=== PATIENT | female | born 1970 | race Caucasian/White ===

== ENCOUNTER → 2018-01-28 07:06 | Outpatient (CLI) | payer OTHER, SELFPAY ==
[2018-01-28 08:12] LABS: Add Manual Diff / Slide Review NO; Basophils Percent Auto 0.5 % (0-2); Eosinophils Percent Auto 1.6 % (2-4); Hematocrit 40.8 % (36-46); Hemoglobin 13.7 g/dL (12.0-16.0); Lymphocytes Percent Auto 35.1 % (25-40); Mean Corpuscular HGB Conc 33.5 % (30-36); Mean Corpuscular Hemoglobin 30.9 PG (26-34); Mean Corpuscular Volume 92.4 fL (80-100); Monocytes Percent Auto 8.7 % (3-14); Neutrophils Absolute Auto 3200 /uL (3000-5900); Neutrophils Percent Auto 54.1 % (50-75); Platelet Count 194 X10^3/uL (150-400); Red Blood Cell Count 4.41 X10^6/uL (4.0-5.2); Red Cell Distribution Width 13.4 % (11.6-14.8); White Blood Cell Count 5.8 X10^3/uL (4.5-11.0)
[2018-01-28 08:21] LABS: Alanine Aminotransferase 28 IU/L (9-52); Albumin Globulin Ratio 1.3 (1.0-2.8); Alkaline Phosphatase 61 U/L (38-126); Aspartate Aminotransferase 20 IU/L (14-36); Bilirubin Total 0.5 mg/dL (0.2-1.3); Calcium 8.9 mg/dL (8.4-10.2); Estimated Glomerular Filt Rate > 60.0 mL/min (>60); Globulin 3.1 g/dL (1.7-4.1); Glucose 83 mg/dL (70-100); HEMOLYSIS < 15 (0-50); Potassium 4.2 mmol/L (3.4-5.1); Sodium 142 mmol/L (137-145); Total Protein 7.1 g/dL (6.3-8.2)
[2018-01-28 08:44] LABS: Appearance Urine UA CLEAR; Bilirubin Urine UA NEGATIVE (NEGATIVE); Color Urine UA YELLOW; Glucose Urine UA NEGATIVE (Normal); Ketones Urine UA NEGATIVE (NEGATIVE); Leukocyte Esterase Urine UA NEGATIVE (NEGATIVE); Nitrite Urine UA NEGATIVE (NEGATIVE); Occult Blood Urine UA TRACE-LYSED (Negative); Protein Urine UA NEGATIVE (Negative); Specific Gravity Urine UA 1.025 (1.000-1.035); Urobilinogen Urine UA 0.2 E.U./dL (0.2)
[2018-01-28 08:51] LABS: Culture Indicated Urine Cult Not Indicated; RBC Urine 1-5/HPF (0-5/HPF)
[2018-01-28 08:53] LABS: Squamous Epithelial Cell Urine 5-10 /HPF
== END ==
PROVIDERS: Family Provider Nurse Practitioner; PCP Nurse Practitioner; Visit Provider Nurse Practitioner Family
DX: Z00.00 Encounter for general adult medical examination without abnormal findings (principal)
CPT/HCPCS: 36415; 80053; 81001; 85025

== ENCOUNTER → 2018-01-29 10:51 | Outpatient (CLI) | payer OTHER, SELFPAY ==
--- NOTE | 2018-01-29 | DI.MG.S_ITS ---
BILATERAL DIGITAL SCREENING MAMMOGRAM 3D/2D WITH CAD: 01/29/2018 CLINICAL: Routine screening. Family history of breast cancer. Comparison is made to exams dated: 01/13/2017 mammogram, 12/24/2015 mammogram, and 12/15/2014 mammogram - [facility]. The tissue of both breasts is heterogeneously dense. This may lower the sensitivity of mammography. Current study was also evaluated with a Computer Aided Detection (CAD) system. No significant masses, calcifications, or other findings are seen in either breast. There has been no significant interval change. IMPRESSION: NEGATIVE There is no mammographic evidence of malignancy. A 1 year screening mammogram is recommended. This exam was interpreted at Station ID: [id number]. NOTE: For mammograms, a report in lay terms will be sent to the patient. Approximately 15% of breast malignancies will not be visualized mammographically. In the management of a palpable breast mass, a negative mammogram must not discourage biopsy of a clinically suspicious lesion. Electronically Signed By: Nathan hawkins/shazia:02/03/2018 16:27:29 letter sent: Normal Exam ACR BI-RADS Category 1: Negative 3341F
== END ==
PROVIDERS: PCP Obstetrics & Gynecology; Visit Provider Obstetrics & Gynecology
DX: Z12.31 Encounter for screening mammogram for malignant neoplasm of breast (principal); Z80.3 Family history of malignant neoplasm of breast
CPT/HCPCS: 77063; 77067

== ENCOUNTER → 2019-06-09 14:33 | Outpatient (CLI) | payer OTHER, SELFPAY | PROVIDERS: PCP Obstetrics & Gynecology | DX: Z23 Encounter for immunization (principal) | CPT/HCPCS: 90471; 90686 ==

== ENCOUNTER → 2020-02-20 09:47 | Outpatient (CLI) | payer OTHER, SELFPAY ==
--- NOTE | 2020-02-20 09:49 | DI.MG.S_ITS ---
BILATERAL DIGITAL SCREENING MAMMOGRAM 3D/2D WITH CAD: 02/20/2020 CLINICAL: Routine screening. Family history of breast cancer. Comparison is made to exams dated: 01/13/2017 mammogram, 01/29/2018 mammogram, and 12/24/2015 mammogram - [facility]. The tissue of both breasts is heterogeneously dense. This may lower the sensitivity of mammography. Current study was also evaluated with a Computer Aided Detection (CAD) system. No significant masses, calcifications, or other findings are seen in either breast. There has been no significant interval change. IMPRESSION: NEGATIVE There is no mammographic evidence of malignancy. A 1 year screening mammogram is recommended. This exam was interpreted at Station ID: [id number]. NOTE: For mammograms, a report in lay terms will be sent to the patient. Approximately 15% of breast malignancies will not be visualized mammographically. In the management of a palpable breast mass, a negative mammogram must not discourage biopsy of a clinically suspicious lesion. Electronically Signed By: Gregory napoles/shazia:02/20/2020 10:13:31 letter sent: Normal Exam ACR BI-RADS Category 1: Negative 3341F
== END ==
PROVIDERS: PCP Obstetrics & Gynecology; Referring Provider Obstetrics & Gynecology; Visit Provider Obstetrics & Gynecology
DX: Z12.31 Encounter for screening mammogram for malignant neoplasm of breast (principal); Z80.3 Family history of malignant neoplasm of breast
CPT/HCPCS: 77063; 77067

== ENCOUNTER → 2020-02-29 07:41 | Outpatient (CLI) | payer OTHER, SELFPAY ==
[2020-02-29 08:19] LABS: Add Manual Diff / Slide Review NO; Basophils Absolute Auto 0 /uL (0-100); Basophils Percent Auto 0.5 % (0-2); Eosinophils Absolute Auto 0 /uL (0-450); Eosinophils Percent Auto 1.4 % (2-4); Hematocrit 40.8 % (36-46); Hemoglobin 13.8 g/dL (12.0-16.0); Lymphocytes Absolute Auto 1200 /uL (1100-4500); Lymphocytes Percent Auto 33.1 % (25-40); Mean Corpuscular HGB Conc 33.8 % (30-36); Mean Corpuscular Hemoglobin 31.6 PG (26-34); Mean Corpuscular Volume 93.6 fL (80-100); Monocytes Absolute Auto 300 /uL (0-900); Monocytes Percent Auto 9.5 % (3-14); Neutrophils Absolute Auto 1900 /uL (1500-7000); Neutrophils Percent Auto 55.5 % (50-75); Platelet Count 180 X10^3/uL (150-400); Red Blood Cell Count 4.36 X10^6/uL (4.0-5.2); Red Cell Distribution Width 13.9 % (11.6-14.8); White Blood Cell Count 3.5 X10^3/uL (4.5-11.0)
[2020-02-29 09:15] LABS: Alanine Aminotransferase 13 IU/L (<35); Albumin 4.4 g/dL (3.5-5.0); Albumin Globulin Ratio 1.5 (1.0-2.8); Alkaline Phosphatase 62 U/L (38-126); Aspartate Aminotransferase 18 IU/L (14-36); BUN Creatinine Ratio 23.7 (6-22); Bilirubin Total 0.8 mg/dL (0.2-1.3); Blood Urea Nitrogen 22 mg/dL (7-17); Calcium 9.8 mg/dL (8.4-10.2); Carbon Dioxide 23 mmol/L (22-32); Chloride 108 mmol/L (98-107); Cholesterol 148 mg/dL (140-199); Estimated Glomerular Filt Rate > 60.0 mL/min (>60); Globulin 2.9 g/dL (1.7-4.1); Glucose 82 mg/dL (70-100); HDL Cholesterol 62 mg/dL (40-60); HEMOLYSIS < 15 (0-50); LDL Cholesterol Calculated 74 mg/dL (<100); Potassium 4.5 mmol/L (3.4-5.1); Sodium 140 mmol/L (137-145); Total Protein 7.3 g/dL (6.3-8.2); Triglycerides 59 mg/dL (35-150)
[2020-02-29 09:45] LABS: Thyroid Stimulating Hormone 1.91 uIU/mL (0.47-4.68)
== END ==
PROVIDERS: PCP Obstetrics & Gynecology; Referring Provider Obstetrics & Gynecology; Visit Provider Obstetrics & Gynecology
DX: Z00.00 Encounter for general adult medical examination without abnormal findings (principal); Z13.228 Encounter for screening for other metabolic disorders; Z13.29 Encounter for screening for other suspected endocrine disorder; Z13.0 Encounter for screening for diseases of the blood and blood-forming organs and certain disorders involving the immune mechanism; Z13.220 Encounter for screening for lipoid disorders
CPT/HCPCS: 36415; 80053; 80061; 84443; 85025

== ENCOUNTER → 2020-03-09 12:18 | Outpatient (CLI) | payer OTHER, SELFPAY ==
--- NOTE | 2020-03-09 12:21 | DI.US.S_ITS ---
LIMITED ULTRASOUND OF LEFT BREAST: 03/09/2020 CLINICAL: Palpable left breast lump by physician. Comparison is made to exams dated: 02/20/2020 mammogram, 01/29/2018 mammogram, and 01/13/2017 mammogram - [facility]. Real-time ultrasound of the left breast retroareolar was performed. Velázquez scale images of the real-time examination were reviewed. No significant abnormalities were seen sonographically in the left breast at the indicated area of palpable abnormality. This area on mammogram demonstrates questionable asymmetry in retrospect. IMPRESSION: PROBABLY BENIGN A follow-up left mammogram and an ultrasound in 6 months is recommended to demonstrate stability. Future imaging is recommended as follows: 02/20/2021 screening mammogram. Findings and recommendations were conveyed to the patient at time of exam. This exam was interpreted at Station ID: [id number]. Electronically Signed By: Leyla cramer/:03/09/2020 13:35:16 letter sent: Followup Recommended Ultrasound BI-RADS: 3 Probably benign
== END ==
PROVIDERS: PCP Obstetrics & Gynecology; Referring Provider Obstetrics & Gynecology; Visit Provider Obstetrics & Gynecology
DX: R92.8 Other abnormal and inconclusive findings on diagnostic imaging of breast (principal); N63.25 Unspecified lump in the left breast, overlapping quadrants
CPT/HCPCS: 76642

== ENCOUNTER → 2020-06-19 19:36 | Outpatient (CLI) | payer OTHER, SELFPAY | PROVIDERS: PCP Obstetrics & Gynecology; Referring Provider Internal Medicine; Visit Provider Internal Medicine | DX: Z23 Encounter for immunization (principal) | CPT/HCPCS: 90471; 90686 ==

== ENCOUNTER → 2021-09-23 10:24 | Outpatient (CLI) | payer OTHER, SELFPAY ==
[2021-09-24 13:59] LABS: Fecal Immunochemical Test Positive (Negative)
== END ==
PROVIDERS: PCP Internal Medicine; Referring Provider Internal Medicine; Visit Provider Internal Medicine
DX: Z12.11 Encounter for screening for malignant neoplasm of colon (principal)
CPT/HCPCS: 82274

== ENCOUNTER → 2022-07-25 09:37 | Outpatient (CLI) | payer OTHER, SELFPAY ==
--- NOTE | 2022-07-25 09:40 | DI.MG.S_ITS ---
BILATERAL DIGITAL DIAGNOSTIC MAMMOGRAM 3D/2D: 07/25/2022 CLINICAL: Late Short term follow up of the left breast, due for bilateral imaging. Comparison is made to exams dated: 03/09/2020 ultrasound, 02/20/2020 mammogram, 01/29/2018 mammogram, and 01/13/2017 mammogram - [facility]. Both breasts are heterogeneously dense, which may obscure small masses (category c / 51-75% glandular tissue). The previously seen questionable asymmetry in the left breast retroareolar region is no longer visualized, presumably secondary to superimposed fibroglandular breast tissue on the prior exam. No significant masses, calcifications, or other findings are seen in either breast. IMPRESSION: NEGATIVE There is no mammographic evidence of malignancy. Return to annual mammogram screening schedule is recommended. Based on the Tyrer Cuzick model (a risk assessment model) the patient's lifetime risk is 12.8% and her 10 year risk is 3.2%. According to the ACR, ACS, and NCCN guidelines, an annual breast MRI exam along with mammogram is recommended if the patient's lifetime risk is 20% or greater. This exam was interpreted at Station ID: [id number]. NOTE: For mammograms, a report in lay terms will be sent to the patient. Approximately 15% of breast malignancies will not be visualized mammographically. In the management of a palpable breast mass, a negative mammogram must not discourage biopsy of a clinically suspicious lesion. Electronically Signed By: Leobardo bliss/shazia:07/25/2022 10:22:52 letter sent: Normal Exam ACR BI-RADS Category 1: Negative 3341F
== END ==
PROVIDERS: PCP Internal Medicine; Referring Provider Internal Medicine; Visit Provider Internal Medicine
DX: R92.1 Mammographic calcification found on diagnostic imaging of breast (principal)
CPT/HCPCS: 77066; G0279

== ENCOUNTER → 2023-07-16 | Outpatient (CLI) | payer OTHER, SELFPAY | PROVIDERS: Family Provider Internal Medicine; PCP Internal Medicine; Referring Provider Family Medicine; Visit Provider Family Medicine | DX: Z23 Encounter for immunization (principal) | CPT/HCPCS: 90471; 90686 ==

== ENCOUNTER 2023-09-03 15:15 | Outpatient (RCR) | payer OTHER, SELFPAY ==
--- NOTE | 2023-05-06 18:22 | PT.OIE ---
Current Diagnoses Pain in left shoulder (05/06/23) Past Medical History (Last Updated 11/14/21 @ 14:24 by Wilian Ford MD) Abnormal Pap smear of cervix (1996) Chronic back pain (2012) Eczema (1971) Hayfever (~1980) History of adenomatous polyp of colon Infection of skin due to methicillin resistant Staphylococcus aureus (MRSA) (2007) Leg length discrepancy Miscarriage (07/2005) Past Surgical History (Last Reviewed 01/08/21 @ 14:12 by Wilian Ford MD) Anesthesia History of varicose vein stripping (2006) Status post dilation and curettage (2004) Status post loop electrosurgical excision procedure (LEEP) of cervix (1996) Visit Care Team Role Provider Type Wilian Ford MD Attending Provider Physician Family Provider Primary Care Provider Referring Provider Specialty: Internal Medicine Address: [address] [place] [address], [address], [facility] Email: [email or web address] Physical Therapy Initial Evaluation PT-OP-A Visit Information Start: 04/29/23 14:56 Freq: Status: Active Protocol: Document 05/06/23 15:16 [facility] (Rec: 05/06/23 16:52 [facility] [id number]) Out-Patient Physical Therapy Visit Information Visit Information Visit Type Initial Evaluation Visit Start Time 16:06 Visit Stop Time 16:49 Total Visit Minutes 43 Visit Number 1 Number of CHAINSTITCH 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 Now she gets a spasm in armpit. She likes to sleep on stomach and her L lat arm and into lat forearm. She is trying to sit better at her desk. 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 She gets the pain when bending over. She hasn't swam. She did light weights . Pt was doing a challenge w/ squats, dips, push ups in November and December and is wondering if that was par to fit. Now she is in the gym and she is working out. She has a noticed she is weaker. She can't bench d/t the signficant weakness. pt lean back when sleeping d/t otherwise arm goes numb. Motrin didn't help. She took a 12 hour steriod from the [facility] which helepd only a little. She feels like L shoulder has some dec ROM. Gets some shooting pain in lat neck. when MT was working on R side of neck, felt it burning down the arm. Denies JETER. Pt does wear a helmet when flying that has about 5lbs to it. Pt has LBP issues but that hasn't been an issue recently. Pt report that gets worse when she gains weight. She has worked w/ a chiro 3x and it wasn't helping. This was in February when is was really bad. Massage has helped but not fully. Treatment Goals Patient/Caregiver Goals be able to carry backpack, not have pain during work, be able lift more evenly PT-OP-C Subjective Start: 04/29/23 14:56 Freq: Status: Active Protocol: Document 05/06/23 15:16 [facility] (Rec: 05/06/23 16:52 [facility] [id number]) OP-PT Pain Assessment Location L shoulder Pain Location Details med shoulder blade Frequency Constant Pain Duration can take a couple days Radiating Location up L neck Variations/Patterns burning/tingling down lat arm and into 2nd and 3rd digit( tips only) Pain Aggravating Factors Bending,Lifting Other Pain Aggravating Factors carrying backpack, Pain Alleviating Factors Massage PT-OP-F Manual Assessment Start: 04/29/23 14:56 Freq: Status: Active Protocol: Document 05/06/23 15:16 [facility] (Rec: 05/06/23 16:52 [facility] [id number]) Manual Assessments Joint Mobility Assessment Joint Mobility Assessment L 1st rib elevated PT-OP-J Posture/Palpation/Skin Start: 04/29/23 14:56 Freq: Status: Active Protocol: Document 05/06/23 15:16 [facility] (Rec: 05/06/23 16:52 [facility] [id number]) Posture Evaluation Akosua Postural Classification System Akosua Postural Classifications Posterior/Posterior Elbow Flexion Test 1 Comments Posture Comments ant tipped and abd L scap PT-OP-K Range of Motion Start: 04/29/23 14:56 Freq: Status: Active Protocol: Document 05/06/23 15:16 [facility] (Rec: 05/06/23 16:52 [facility] [id number]) Cervical Spine Range of Motion Cervical Spine Active Degrees Flexion 62 Extension 45 Rotation Left 58 Rotation Right 62 Lateral Flexion Left 34 Lateral Flexion Right 35 Comments ext & R SB inc pain; LUE WNL except 90/90 ER PT-OP-L Special Tests Start: 04/29/23 14:56 Freq: Status: Active Protocol: Document 05/06/23 15:16 [facility] (Rec: 05/06/23 16:52 [facility] [id number]) Special Tests Cervical Spine Special Tests Traction Test Results inc symptoms down UE Spurling's Test Test Results inc symptoms down UE Neural Special Tests- Upper Body Radial Nerve Tension Comments positive l Ulnar Nerve Tension Comments relief of symptoms Median Nerve Tension Comments positive L PT-OP-M Strength Start: 04/29/23 14:56 Freq: Status: Active Protocol: Document 05/06/23 15:16 [facility] (Rec: 05/06/23 16:52 [facility] [id number]) Shoulder Strength Shoulder Manual Muscle Testing Right Flexion 5 Normal Extension 5 Normal Abduction (C5) 5 Normal Internal Rotation 5 Normal Left Flexion 4 Good Extension 4 Good Abduction (C5) 4+ Good+ External Rotation 4- Good- Internal Rotation 5 Normal Elbow/Forearm Strength Elbow and Forearm Manual Muscle Testing Right Flexion (C6) 5 Normal Extension (C7) 5 Normal Left Flexion (C6) 5 Normal Extension (C7) 4 Good Wrist Strength Wrist Manual Muscle Testing Right Flexion (C7) 5 Normal Extension (C6) 5 Normal Left Flexion (C7) 4 Good Extension (C6) [address] Machine Operator/Pinch Strength Hand Dominance Hand Dominance Right Hand Strength Right Comments 67#, 74#, 68# Left Comments 65lb, 55lb, 45# PT-OP-Q Treatments Start: 04/29/23 14:56 Freq: Status: Active Protocol: Document 05/06/23 15:16 [facility] (Rec: 05/06/23 18:08 [facility] [id number]) Manual Therapy Treatment Joint Mobilizations thoracic Body Position Sitting Comments PA T1-3 w/3D localization FM seated transverse glide R T1-3 FM w/ cover position PT-OP-T Assessment and Plan Start: 04/29/23 14:56 Freq: Status: Active Protocol: Document 05/06/23 15:16 [facility] (Rec: 05/06/23 16:52 [facility] [id number]) Physical Therapy Assessment Rehab Potential Rehabilitation Potential Good Evaluation Complexity Number of Personal Factors/Comorbidities 3 or More Number of Body Systems Impaired 4 or More Clinical Presentation at Evaluation Evolving Impairments Impairments Activity Tolerance,Functional Activities,Functional Mobility ,Pain,Posture,ROM,Sensation, Soft Tissue Mobility,Strength Goals activities Short Term Goal (STG) Pt will be able to sleep comfortably w/o having to change position to dec symptoms into LUE. STG Duration 06/14/23 Agronomy Instructor Goal (LTG) Pt will be able to lift and swim w/o inc L shoulder pain. LTG Duration 07/15/23 strength Short Term Goal (STG) pt will be indep w/HEP STG Duration 06/14/23 Agronomy Instructor Goal (LTG) Pt will score 5/5 UE strength on L and at least 4/5 EFT to show improved stabiltiy in order pt to do all lifting tasks w/o inc pain. 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 LTG Duration 07/15/23 Assessment Summary Assessment Pt presents w/onset of L mid med scap pain taht started3 months ago and 1 month later progressing to UE tingling and burning in C6 distribution except for the thumb and numbness at tips of figers 2 and 3. 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 She is unable to carry a back pack at this time, which is a vital duty of her job and prohibits her from hiking w/a pack strapped appropriately to her. She has weakness of LUE along w/limited cervical and mild shoudler ROM limitation. she had positive radial and med n tension testing and does not have history of any trama to her neck/head. She has elevation of ribs on L along w /dec inhalation and exhalation on L. Pt also breathes more shallow w/mostly upper ribcage movement during breathing w/ dec diaphragmatic breathing, whcih could be contributing to this pain. Pt would benefit from skilled PT to improve ROM , LUE strength, dec symptoms and allow pt to resume all job duties and do all rec activities w/o inc pain. Physical Therapy Plan Frequency and Duration Frequency of Treatment 1x/Week Duration of treatment (weeks) 10 Plan of Care Start Date 05/06/23 Plan of Care End Date 07/15/23 Therapeutic Interventions Therapeutic Interventions Gait Training,Home Exercise Program,Joint Mobilizations, Manual Therapy,Neuromuscular Re-education,Orthotic/ Prosthetic Management,Patient/ Caregiver Education,Self-Care/ Home Management,Soft Tissue Mobilization,Taping, Therapeutic Activities, Therapeutic Exercises Modalities Cold Pack/Ice Massage,Electric Stimulation,Hot Packs, Infrared Therapy,Traction- Mechanical,Ultrasound Next Visit Focus/Plan Next Note Type Treatment Note Next Visit Plan manubrium, tspine mobs, ribs 1 -3 mobs, STM to pec, lat, UT, scalenes, L ribcage HEP: wall posture w/pivot prone mod, foam roll, axial elongation, diaphragmatic breathing Artery screening
--- NOTE | 2023-05-06 18:23 | PT.OIE ---
Current Diagnoses Pain in left shoulder (05/06/23) Past Medical History (Last Updated 11/14/21 @ 14:24 by Wilian Ford MD) Abnormal Pap smear of cervix (1996) Chronic back pain (2012) Eczema (1971) Hayfever (~1980) History of adenomatous polyp of colon Infection of skin due to methicillin resistant Staphylococcus aureus (MRSA) (2007) Leg length discrepancy Miscarriage (07/2005) Past Surgical History (Last Reviewed 01/08/21 @ 14:12 by Wilian Ford MD) Anesthesia History of varicose vein stripping (2006) Status post dilation and curettage (2004) Status post loop electrosurgical excision procedure (LEEP) of cervix (1996) Visit Care Team Role Provider Type Wilian Ford MD Attending Provider Physician Family Provider Primary Care Provider Referring Provider Specialty: Internal Medicine Address: [address] [place] [address], [address], [facility] Email: [email or web address] Physical Therapy Initial Evaluation PT-OP-A Visit Information Start: 04/29/23 14:56 Freq: Status: Active Protocol: Document 05/06/23 15:16 [facility] (Rec: 05/06/23 16:52 [facility] [id number]) Out-Patient Physical Therapy Visit Information Visit Information Visit Type Initial Evaluation Visit Start Time 16:06 Visit Stop Time 16:49 Total Visit Minutes 43 Visit Number 1 Number of PIERCING MACHINE OPERATOR Visits 0 PT-OP-B Current Condition Start: 04/29/23 14:56 Freq: Status: Active Protocol: Document 05/06/23 15:16 [facility] (Rec: 05/06/23 16:52 [facility] [id number]) Current Condition History of Current Condition Onset Date January Current Complaints L shoulder History of Current Condition Pt reports in January she got a knot in L med scap border area then in February, her 2nd and 3rd finger is tingling. Now she gets a spasm in armpit. She likes to sleep on stomach and her L lat arm and into lat forearm. She is trying to sit better at her desk. 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 She gets the pain when bending over. She hasn't swam. She did light weights . Pt was doing a challenge w/ squats, dips, push ups in November and December and is wondering if that was par to fit. Now she is in the gym and she is working out. She has a noticed she is weaker. She can't bench d/t the signficant weakness. pt lean back when sleeping d/t otherwise arm goes numb. Motrin didn't help. She took a 12 hour steriod from the [facility] which helepd only a little. She feels like L shoulder has some dec ROM. Gets some shooting pain in lat neck. when MT was working on R side of neck, felt it burning down the arm. Denies JETER. Pt does wear a helmet when flying that has about 5lbs to it. Pt has LBP issues but that hasn't been an issue recently. Pt report that gets worse when she gains weight. She has worked w/ a chiro 3x and it wasn't helping. This was in February when is was really bad. Massage has helped but not fully. Treatment Goals Patient/Caregiver Goals be able to carry backpack, not have pain during work, be able lift more evenly PT-OP-C Subjective Start: 04/29/23 14:56 Freq: Status: Active Protocol: Document 05/06/23 15:16 [facility] (Rec: 05/06/23 16:52 [facility] [id number]) OP-PT Pain Assessment Location L shoulder Pain Location Details med shoulder blade Frequency Constant Pain Duration can take a couple days Radiating Location up L neck Variations/Patterns burning/tingling down lat arm and into 2nd and 3rd digit( tips only) Pain Aggravating Factors Bending,Lifting Other Pain Aggravating Factors carrying backpack, Pain Alleviating Factors Massage PT-OP-F Manual Assessment Start: 04/29/23 14:56 Freq: Status: Active Protocol: Document 05/06/23 15:16 [facility] (Rec: 05/06/23 16:52 [facility] [id number]) Manual Assessments Joint Mobility Assessment Joint Mobility Assessment L 1st rib elevated PT-OP-J Posture/Palpation/Skin Start: 04/29/23 14:56 Freq: Status: Active Protocol: Document 05/06/23 15:16 [facility] (Rec: 05/06/23 16:52 [facility] [id number]) Posture Evaluation Akosua Postural Classification System Akosua Postural Classifications Posterior/Posterior Elbow Flexion Test 1 Comments Posture Comments ant tipped and abd L scap PT-OP-K Range of Motion Start: 04/29/23 14:56 Freq: Status: Active Protocol: Document 05/06/23 15:16 [facility] (Rec: 05/06/23 16:52 [facility] [id number]) Cervical Spine Range of Motion Cervical Spine Active Degrees Flexion 62 Extension 45 Rotation Left 58 Rotation Right 62 Lateral Flexion Left 34 Lateral Flexion Right 35 Comments ext & R SB inc pain; LUE WNL except 90/90 ER PT-OP-L Special Tests Start: 04/29/23 14:56 Freq: Status: Active Protocol: Document 05/06/23 15:16 [facility] (Rec: 05/06/23 16:52 [facility] [id number]) Special Tests Cervical Spine Special Tests Traction Test Results inc symptoms down UE Spurling's Test Test Results inc symptoms down UE Neural Special Tests- Upper Body Radial Nerve Tension Comments positive l Ulnar Nerve Tension Comments relief of symptoms Median Nerve Tension Comments positive L PT-OP-M Strength Start: 04/29/23 14:56 Freq: Status: Active Protocol: Document 05/06/23 15:16 [facility] (Rec: 05/06/23 16:52 [facility] [id number]) Shoulder Strength Shoulder Manual Muscle Testing Right Flexion 5 Normal Extension 5 Normal Abduction (C5) 5 Normal Internal Rotation 5 Normal Left Flexion 4 Good Extension 4 Good Abduction (C5) 4+ Good+ External Rotation 4- Good- Internal Rotation 5 Normal Elbow/Forearm Strength Elbow and Forearm Manual Muscle Testing Right Flexion (C6) 5 Normal Extension (C7) 5 Normal Left Flexion (C6) 5 Normal Extension (C7) 4 Good Wrist Strength Wrist Manual Muscle Testing Right Flexion (C7) 5 Normal Extension (C6) 5 Normal Left Flexion (C7) 4 Good Extension (C6) 5 Normal Hand Mangle Tender Cloth/Pinch Strength Hand Dominance Hand Dominance Right Hand Strength Right Comments 67#, 74#, 68# Left Comments 65lb, 55lb, 45# PT-OP-Q Treatments Start: 04/29/23 14:56 Freq: Status: Active Protocol: Document 05/06/23 15:16 [facility] (Rec: 05/06/23 18:08 [facility] [id number]) Manual Therapy Treatment Joint Mobilizations thoracic Body Position Sitting Comments PA T1-3 w/3D localization FM seated transverse glide R T1-3 FM w/ cover position PT-OP-T Assessment and Plan Start: 04/29/23 14:56 Freq: Status: Active Protocol: Document 05/06/23 15:16 [facility] (Rec: 05/06/23 16:52 [facility] [id number]) Physical Therapy Assessment Rehab Potential Rehabilitation Potential Good Evaluation Complexity Number of Personal Factors/Comorbidities 3 or More Number of Body Systems Impaired 4 or More Clinical Presentation at Evaluation Evolving Impairments Impairments Activity Tolerance,Functional Activities,Functional Mobility ,Pain,Posture,ROM,Sensation, Soft Tissue Mobility,Strength Goals activities Short Term Goal (STG) Pt will be able to sleep comfortably w/o having to change position to dec symptoms into LUE. STG Duration 06/14/23 Health Assessment And Treatment Teacher Goal (LTG) Pt will be able to lift and swim w/o inc L shoulder pain. LTG Duration 07/15/23 strength Short Term Goal (STG) pt will be indep w/HEP STG Duration 06/14/23 Health Assessment And Treatment Teacher Goal (LTG) Pt will score 5/5 UE strength on L and at least 4/5 EFT to show improved stabiltiy in order pt to do all lifting tasks w/o inc pain. LTG Duration 07/15/23 work Short Term Goal (STG) Pt will be able to carry a backpack as needed for work and hiking w/o inc pain and be able to sit at desk to work w /o inc pain STG Duration 06/14/23 Health Assessment And Treatment Teacher Goal (LTG) pt will be able to bend over patients as needed to treat them w/o inc pain. LTG Duration 07/15/23 Assessment Summary Assessment Pt presents w/onset of L mid med scap pain taht started3 months ago and 1 month later progressing to UE tingling and burning in C6 distribution except for the thumb and numbness at tips of figers 2 and 3. 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 She is unable to carry a back pack at this time, which is a vital duty of her job and prohibits her from hiking w/a pack strapped appropriately to her. She has weakness of LUE along w/limited cervical and mild shoudler ROM limitation. she had positive radial and med n tension testing and does not have history of any trama to her neck/head. She has elevation of ribs on L along w /dec inhalation and exhalation on L. Pt also breathes more shallow w/mostly upper ribcage movement during breathing w/ dec diaphragmatic breathing, whcih could be contributing to this pain. Pt would benefit from skilled PT to improve ROM , LUE strength, dec symptoms and allow pt to resume all job duties and do all rec activities w/o inc pain. Physical Therapy Plan Frequency and Duration Frequency of Treatment 1x/Week Duration of treatment (weeks) 10 Plan of Care Start Date 05/06/23 Plan of Care End Date 07/15/23 Therapeutic Interventions Therapeutic Interventions Gait Training,Home Exercise Program,Joint Mobilizations, Manual Therapy,Neuromuscular Re-education,Orthotic/ Prosthetic Management,Patient/ Caregiver Education,Self-Care/ Home Management,Soft Tissue Mobilization,Taping, Therapeutic Activities, Therapeutic Exercises Modalities Cold Pack/Ice Massage,Electric Stimulation,Hot Packs, Infrared Therapy,Traction- Mechanical,Ultrasound Next Visit Focus/Plan Next Note Type Treatment Note Next Visit Plan manubrium, tspine mobs, ribs 1 -3 mobs, STM to pec, lat, UT, scalenes, L ribcage HEP: wall posture w/pivot prone mod, foam roll, axial elongation, diaphragmatic breathing Artery screening
--- NOTE | 2023-05-06 18:23 | PT.OPPOC ---
Physical, Occupational & Speech Therapy At [facility] Current Diagnoses Pain in left shoulder (05/06/23) Visit Care Team Role Provider Type Wilian Ford MD Attending Provider Physician Family Provider Primary Care Provider Referring Provider Specialty: Internal Medicine Address: [address] [place] [address], [address], [address] Email: [email or web address] Plan Of Care PT-OP-T Assessment and Plan Start: 04/29/23 14:56 Freq: Status: Active Protocol: Document 05/06/23 15:16 [facility] (Rec: 05/06/23 16:52 [facility] [id number]) Physical Therapy Assessment Rehab Potential Rehabilitation Potential Good Evaluation Complexity Number of Personal Factors/Comorbidities 3 or More Number of Body Systems Impaired 4 or More Clinical Presentation at Evaluation Evolving Impairments Impairments Activity Tolerance,Functional Activities,Functional Mobility ,Pain,Posture,ROM,Sensation, Soft Tissue Mobility,Strength Goals activities Short Term Goal (STG) Pt will be able to sleep comfortably w/o having to change position to dec symptoms into LUE. STG Duration 06/14/23 Care Home Goal (LTG) Pt will be able to lift and swim w/o inc L shoulder pain. LTG Duration 07/15/23 strength Short Term Goal (STG) pt will be indep w/HEP STG Duration 06/14/23 Technical Service Rep Goal (LTG) Pt will score 5/5 UE strength on L and at least 4/5 EFT to show improved stabiltiy in order pt to do all lifting tasks w/o inc pain. LTG Duration 07/15/23 work Short Term Goal (STG) Pt will be able to carry a backpack as needed for work and hiking w/o inc pain and be able to sit at desk to work w /o inc pain STG Duration 06/14/23 Care Home Goal (LTG) pt will be able to bend over patients as needed to treat them w/o inc pain. LTG Duration 07/15/23 Assessment Summary Assessment Pt presents w/onset of L mid med scap pain taht started3 months ago and 1 month later progressing to UE tingling and burning in C6 distribution except for the thumb and numbness at tips of figers 2 and 3. 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 She is unable to carry a back pack at this time, which is a vital duty of her job and prohibits her from hiking w/a pack strapped appropriately to her. She has weakness of LUE along w/limited cervical and mild shoudler ROM limitation. she had positive radial and med n tension testing and does not have history of any trama to her neck/head. She has elevation of ribs on L along w /dec inhalation and exhalation on L. Pt also breathes more shallow w/mostly upper ribcage movement during breathing w/ dec diaphragmatic breathing, whcih could be contributing to this pain. Pt would benefit from skilled PT to improve ROM , LUE strength, dec symptoms and allow pt to resume all job duties and do all rec activities w/o inc pain. Physical Therapy Plan Frequency and Duration Frequency of Treatment 1x/Week Duration of treatment (weeks) 10 Plan of Care Start Date 05/06/23 Plan of Care End Date 07/15/23 Therapeutic Interventions Therapeutic Interventions Gait Training,Home Exercise Program,Joint Mobilizations, Manual Therapy,Neuromuscular Re-education,Orthotic/ Prosthetic Management,Patient/ Caregiver Education,Self-Care/ Home Management,Soft Tissue Mobilization,Taping, Therapeutic Activities, Therapeutic Exercises Modalities Cold Pack/Ice Massage,Electric Stimulation,Hot Packs, Infrared Therapy,Traction- Mechanical,Ultrasound Next Visit Focus/Plan Next Note Type Treatment Note Next Visit Plan manubrium, tspine mobs, ribs 1 -3 mobs, STM to pec, lat, UT, scalenes, L ribcage HEP: wall posture w/pivot prone mod, foam roll, axial elongation, diaphragmatic breathing Artery screening Plan of Care Dates Plan of Care Start Date 05/06/23 Plan of Care End Date 07/15/23 Electronically Signed by: Elif Her, PT 05/06/23 4483 If you are in agreement with this Plan of Care, please return a signed and dated copy. I have reviewed this Plan of Care and certify that the skilled therapy services above are required to meet the patient?s needs. Physician Signature Date Printed Name and Credentials Clinical Instructor Signature Printed Name and Credentials
--- NOTE | 2023-05-13 18:15 | PT.OTN ---
Current Diagnoses Pain in left shoulder (05/13/23) Physical Therapy Treatment Note PT-OP-A Visit Information Start: 04/29/23 14:56 Freq: Status: Active Protocol: Document 05/13/23 18:08 [facility] (Rec: 05/13/23 18:15 [facility] [id number]) Out-Patient Physical Therapy Visit Information Visit Information Visit Type Treatment Note Visit Start Time 16:04 Visit Stop Time 16:52 Total Visit Minutes 48 Visit Number 2 Number of CLAIM AUDITOR Visits 0 PT-OP-B Current Condition Start: 04/29/23 14:56 Freq: Status: Active Protocol: Document 05/06/23 15:16 [facility] (Rec: 05/06/23 16:52 [facility] [id number]) Current Condition History of Current Condition Onset Date January Current Complaints L shoulder History of Current Condition Pt reports in January she got a knot in L med scap border area then in February, her 2nd and 3rd finger is tingling. Now she gets a spasm in armpit. She likes to sleep on stomach and her L lat arm and into lat forearm. She is trying to sit better at her desk. 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 She gets the pain when bending over. She hasn't swam. She did light weights . Pt was doing a challenge w/ squats, dips, push ups in November and December and is wondering if that was par to fit. Now she is in the gym and she is working out. She has a noticed she is weaker. She can't bench d/t the signficant weakness. pt lean back when sleeping d/t otherwise arm goes numb. Motrin didn't help. She took a 12 hour steriod from the doc which helepd only a little. She feels like L shoulder has some dec ROM. Gets some shooting pain in lat neck. when MT was working on R side of neck, felt it burning down the arm. Denies JETER. Pt does wear a helmet when flying that has about 5lbs to it. Pt has LBP issues but that hasn't been an issue recently. Pt report that gets worse when she gains weight. She has worked w/ a chiro 3x and it wasn't helping. This was in February when is was really bad. Massage has helped but not fully. Treatment Goals Patient/Caregiver Goals be able to carry backpack, not have pain during work, be able lift more evenly PT-OP-C Subjective Start: 04/29/23 14:56 Freq: Status: Active Protocol: Document 05/13/23 18:08 [facility] (Rec: 05/13/23 18:15 [facility] [id number]) OP-PT Subjective Patient Comments Patient Comments Pt reports seh felt good after last session but did 2 shifts in the helicopter and its bad again. Less pec grabbign since then though PT-OP-F Manual Assessment Start: 04/29/23 14:56 Freq: Status: Active Protocol: Document 05/06/23 15:16 [facility] (Rec: 05/06/23 16:52 [facility] [id number]) Manual Assessments Joint Mobility Assessment Joint Mobility Assessment L 1st rib elevated PT-OP-J Posture/Palpation/Skin Start: 04/29/23 14:56 Freq: Status: Active Protocol: Document 05/06/23 15:16 [facility] (Rec: 05/06/23 16:52 [facility] [id number]) Posture Evaluation Akosua Postural Classification System Akosua Postural Classifications Posterior/Posterior Elbow Flexion Test 1 Comments Posture Comments ant tipped and abd L scap PT-OP-K Range of Motion Start: 04/29/23 14:56 Freq: Status: Active Protocol: Document 05/06/23 15:16 [facility] (Rec: 05/06/23 16:52 [facility] [id number]) Cervical Spine Range of Motion Cervical Spine Active Degrees Flexion 62 Extension 45 Rotation Left 58 Rotation Right 62 Lateral Flexion Left 34 Lateral Flexion Right 35 Comments ext & R SB inc pain; LUE WNL except 90/90 ER PT-OP-L Special Tests Start: 04/29/23 14:56 Freq: Status: Active Protocol: Document 05/06/23 15:16 [facility] (Rec: 05/06/23 16:52 [facility] [id number]) Special Tests Cervical Spine Special Tests Traction Test Results inc symptoms down UE Spurling's Test Test Results inc symptoms down UE Neural Special Tests- Upper Body Radial Nerve Tension Comments positive l Ulnar Nerve Tension Comments relief of symptoms Median Nerve Tension Comments positive L PT-OP-M Strength Start: 04/29/23 14:56 Freq: Status: Active Protocol: Document 05/06/23 15:16 [facility] (Rec: 05/06/23 16:52 [facility] [id number]) Shoulder Strength Shoulder Manual Muscle Testing Right Flexion 5 Normal Extension 5 Normal Abduction (C5) 5 Normal Internal Rotation 5 Normal Left Flexion 4 Good Extension 4 Good Abduction (C5) 4+ Good+ External Rotation 4- Good- Internal Rotation 5 Normal Elbow/Forearm Strength Elbow and Forearm Manual Muscle Testing Right Flexion (C6) 5 Normal Extension (C7) 5 Normal Left Flexion (C6) 5 Normal Extension (C7) 4 Good Wrist Strength Wrist Manual Muscle Testing Right Flexion (C7) 5 Normal Extension (C6) 5 Normal Left Flexion (C7) 4 Good Extension (C6) 5 Normal Hand Hvac Sheet Metal Installer/Pinch Strength Hand Dominance Hand Dominance Right Hand Strength Right Comments 67#, 74#, 68# Left Comments 65lb, 55lb, 45# PT-OP-Q Treatments Start: 04/29/23 14:56 Freq: Status: Active Protocol: Document 05/13/23 18:08 [facility] (Rec: 05/13/23 18:15 [facility] [id number]) Therapeutic Exercises Supine Exercises foam roll Supine Exercise Name 1. tspine ext over 2. // on w/ BUE flex-attempted HAbd but inc symptoms Reps/Minutes 6 min Sidelying Exercises open book Side bilateral Reps/Minutes 10 Standing Exercises axial elongation Equipment Used peach Reps/Minutes 8 Manual Therapy Treatment Soft Tissue Mobilization cervical Body Location L UT, scalenes, SCM Mobilization Type Rolling Intensity/Depth Moderate Comments w/head turns Joint Mobilizations ribs Comments L general rib mobs dep s/l w/ scap post elevation 2. rib 2 AP FM 3. Rib 2-3 caudal in s/l FM 4. rib 1 caudal FM in seated w /lat shift and abd 5. seated ribs L SB FM ribs 7- 10 FM manubrium Joint AP w/cervical flex FM thoracic Comments UPA L T1-2 FM seated seated transverse T1-3 FM w/ cover position s/l transverse R T5-7 FM w/ post dep FM PT-OP-T Assessment and Plan Start: 04/29/23 14:56 Freq: Status: Active Protocol: Document 05/13/23 18:08 [facility] (Rec: 05/13/23 18:15 [facility] [id number]) Physical Therapy Assessment Goals activities Short Term Goal (STG) Pt will be able to sleep comfortably w/o having to change position to dec symptoms into LUE. STG Duration 06/14/23 Fishing Worker Goal (LTG) Pt will be able to lift and swim w/o inc L shoulder pain. LTG Duration 07/15/23 strength Short Term Goal (STG) pt will be indep w/HEP STG Duration 06/14/23 Usp Goal (LTG) Pt will score 5/5 UE strength on L and at least 4/5 EFT to show improved stabiltiy in order pt to do all lifting tasks w/o inc pain. LTG Duration 07/15/23 work Short Term Goal (STG) Pt will be able to carry a backpack as needed for work and hiking w/o inc pain and be able to sit at desk to work w /o inc pain STG Duration 06/14/23 Usp Goal (LTG) pt will be able to bend over patients as needed to treat them w/o inc pain. LTG Duration 07/15/23 Assessment Summary Assessment Pt had improved median n tension after manual teratment today. She did get tingling elicited down arm w/trying HAbd on foam roll and it was noted a few times during session manual and PT had to adjust hadn positions. Improved L cervical SB and rot and L SB of trunk after manual. Physical Therapy Plan Frequency and Duration Frequency of Treatment 1x/Week Duration of treatment (weeks) 10 Plan of Care Start Date 05/06/23 Plan of Care End Date 07/15/23 Next Visit Focus/Plan Next Note Type Treatment Note Next Visit Plan cont to wrok on tspine and ribcage mobility, work along med n pathway, STM to pec Add HEP: wall posture w/pivot prone, diphragmatic breathig artery screen
--- NOTE | 2023-05-20 17:39 | PT.OTN ---
Current Diagnoses Pain in left shoulder (05/20/23) Physical Therapy Treatment Note PT-OP-A Visit Information Start: 04/29/23 14:56 Freq: Status: Active Protocol: Document 05/20/23 16:05 [facility] (Rec: 05/20/23 16:52 [facility] [id number]) Out-Patient Physical Therapy Visit Information Visit Information Visit Type Treatment Note Visit Start Time 16:02 Visit Stop Time 16:46 Total Visit Minutes 44 Visit Number 3 Number of RETAIL EVENT COORDINATOR Visits 0 PT-OP-B Current Condition Start: 04/29/23 14:56 Freq: Status: Active Protocol: Document 05/06/23 15:16 [facility] (Rec: 05/06/23 16:52 [facility] [id number]) Current Condition History of Current Condition Onset Date January Current Complaints L shoulder History of Current Condition Pt reports in January she got a knot in L med scap border area then in February, her 2nd and 3rd finger is tingling. Now she gets a spasm in armpit. She likes to sleep on stomach and her L lat arm and into lat forearm. She is trying to sit better at her desk. 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 She gets the pain when bending over. She hasn't swam. She did light weights . Pt was doing a challenge w/ squats, dips, push ups in November and December and is wondering if that was par to fit. Now she is in the gym and she is working out. She has a noticed she is weaker. She can't bench d/t the signficant weakness. pt lean back when sleeping d/t otherwise arm goes numb. Motrin didn't help. She took a 12 hour steriod from the doc which helepd only a little. She feels like L shoulder has some dec ROM. Gets some shooting pain in lat neck. when MT was working on R side of neck, felt it burning down the arm. Denies JETER. Pt does wear a helmet when flying that has about 5lbs to it. Pt has LBP issues but that hasn't been an issue recently. Pt report that gets worse when she gains weight. She has worked w/ a chiro 3x and it wasn't helping. This was in February when is was really bad. Massage has helped but not fully. Treatment Goals Patient/Caregiver Goals be able to carry backpack, not have pain during work, be able lift more evenly PT-OP-C Subjective Start: 04/29/23 14:56 Freq: Status: Active Protocol: Document 05/20/23 16:05 [facility] (Rec: 05/20/23 16:52 [facility] [id number]) OP-PT Subjective Patient Comments Patient Comments Swimming went well. Exercises do make it flare up but she is a lot more flxible. holding chin tuck makes her feel it in L pec. Shee got a massage and work on R neck in pain in L arm. PT-OP-F Manual Assessment Start: 04/29/23 14:56 Freq: Status: Active Protocol: Document 05/06/23 15:16 [facility] (Rec: 05/06/23 16:[id number] Manual Assessments Joint Mobility Assessment Joint Mobility Assessment L 1st rib elevated PT-OP-J Posture/Palpation/Skin Start: 04/29/23 14:56 Freq: Status: Active Protocol: Document 05/06/23 15:16 [facility] (Rec: 05/06/23 16:[id number] Posture Evaluation [facility] Postural Classification System [facility] Postural Classifications Posterior/Posterior Elbow Flexion Test 1 Comments Posture Comments ant tipped and abd L scap PT-OP-K Range of Motion Start: 04/29/23 14:56 Freq: Status: Active Protocol: Document 05/06/23 15:16 [facility] (Rec: 05/06/23 16:52 [facility] [id number]) Cervical Spine Range of Motion Cervical Spine Active Degrees Flexion 62 Extension 45 Rotation Left 58 Rotation Right 62 Lateral Flexion Left 34 Lateral Flexion Right 35 Comments ext & R SB inc pain; LUE WNL except 90/90 ER PT-OP-L Special Tests Start: 04/29/23 14:56 Freq: Status: Active Protocol: Document 05/06/23 15:16 [facility] (Rec: 05/06/23 16:52 [facility] [id number]) Special Tests Cervical Spine Special Tests Traction Test Results inc symptoms down UE Spurling's Test Test Results inc symptoms down UE Neural Special Tests- Upper Body Radial Nerve Tension Comments positive l Ulnar Nerve Tension Comments relief of symptoms Median Nerve Tension Comments positive L PT-OP-M Strength Start: 04/29/23 14:56 Freq: Status: Active Protocol: Document 05/06/23 15:16 [facility] (Rec: 05/06/23 16:52 [facility] [id number]) Shoulder Strength Shoulder Manual Muscle Testing Right Flexion 5 Normal Extension 5 Normal Abduction (C5) 5 Normal Internal Rotation 5 Normal Left Flexion 4 Good Extension 4 Good Abduction (C5) 4+ Good+ External Rotation 4- Good- Internal Rotation 5 Normal Elbow/Forearm Strength Elbow and Forearm Manual Muscle Testing Right Flexion (C6) 5 Normal Extension (C7) 5 Normal Left Flexion (C6) 5 Normal Extension (C7) 4 Good Wrist Strength Wrist Manual Muscle Testing Right Flexion (C7) 5 Normal Extension (C6) 5 Normal Left Flexion (C7) 4 Good Extension (C6) 5 Normal Hand Aerospace Products Sales Engineer/Pinch Strength Hand Dominance Hand Dominance Right Hand Strength Right Comments 67#, 74#, 68# Left Comments 65lb, 55lb, 45# PT-OP-Q Treatments Start: 04/29/23 14:56 Freq: Status: Active Protocol: Document 05/20/23 16:05 [facility] (Rec: 05/20/23 16:52 [facility] [id number]) Therapeutic Exercises Supine Exercises breathing Supine Exercise Name diaphragmatic breathing Standing Exercises wall posture Standing Exercise Name segmental roll up Side bilateral Reps/Minutes 6 Manual Therapy Treatment Soft Tissue Mobilization pec Body Location L minor and major Mobilization Type Rolling cervical Body Location L UT, scalenes, SCM Mobilization Type Rolling Intensity/Depth Moderate Comments w/head turns Joint Mobilizations AC Joint L ant clavicle FM SC Joint L sup Fm cervical Comments C6 and 7 transverse glide R FM C4 and 5 transverse glide L FM AP C5 R FM artery screen neg thoracic Comments transverse seated R T5-6 and T8-9 FM PT-OP-T Assessment and Plan Start: 04/29/23 14:56 Freq: Status: Active Protocol: Document 05/20/23 16:05 [facility] (Rec: 05/20/23 16:52 [facility] [id number]) Physical Therapy Assessment Goals activities Short Term Goal (STG) Pt will be able to sleep comfortably w/o having to change position to dec symptoms into LUE. STG Duration 06/14/23 Territory Manager Goal (LTG) Pt will be able to lift and swim w/o inc L shoulder pain. LTG Duration 07/15/23 strength Short Term Goal (STG) pt will be indep w/HEP STG Duration 06/14/23 Territory Manager Goal (LTG) Pt will score 5/5 UE strength on L and at least 4/5 EFT to show improved stabiltiy in order pt to do all lifting tasks w/o inc pain. LTG Duration 07/15/23 work Short Term Goal (STG) Pt will be able to carry a backpack as needed for work and hiking w/o inc pain and be able to sit at desk to work w /o inc pain STG Duration 06/14/23 [facility] Goal (LTG) pt will be able to bend over patients as needed to treat them w/o inc pain. LTG Duration 07/15/23 Assessment Summary Assessment Pt had about 10 deg improved passive abd on L after manual treatment and imrpoved L thoraicc rotation wchih is much more limited than R. She has limited scap depression on L side Physical Therapy Plan Frequency and Duration Frequency of Treatment 1x/Week Duration of treatment (weeks) 10 Plan of Care Start Date 05/06/23 Plan of Care End Date 07/15/23 Next Visit Focus/Plan Next Note Type Treatment Note Next Visit Plan cont to work on scap ability to depress; check on wall posture
--- NOTE | 2023-06-01 17:54 | PT.OTN ---
Current Diagnoses Pain in left shoulder (06/01/23) Physical Therapy Treatment Note PT-OP-A Visit Information Start: 04/29/23 14:56 Freq: Status: Active Protocol: Document 06/01/23 16:48 [facility] (Rec: 06/01/23 17:54 [facility] [id number]) Out-Patient Physical Therapy Visit Information Visit Information Visit Type Treatment Note Visit Start Time 16:49 Visit Stop Time 17:35 Total Visit Minutes 46 Visit Number 4 Number of INSURANCE CLAIMS ASSISTANT Visits 0 PT-OP-B Current Condition Start: 04/29/23 14:56 Freq: Status: Active Protocol: Document 05/06/23 15:16 [facility] (Rec: 05/06/23 16:52 [facility] [id number]) Current Condition History of Current Condition Onset Date January Current Complaints L shoulder History of Current Condition Pt reports in January she got a knot in L med scap border area then in February, her 2nd and 3rd finger is tingling. Now she gets a spasm in armpit. She likes to sleep on stomach and her L lat arm and into lat forearm. She is trying to sit better at her desk. 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 She gets the pain when bending over. She hasn't swam. She did light weights . Pt was doing a challenge w/ squats, dips, push ups in November and December and is wondering if that was par to fit. Now she is in the gym and she is working out. She has a noticed she is weaker. She can't bench d/t the signficant weakness. pt lean back when sleeping d/t otherwise arm goes numb. Motrin didn't help. She took a 12 hour steriod from the doc which helepd only a little. She feels like L shoulder has some dec ROM. Gets some shooting pain in lat neck. when MT was working on R side of neck, felt it burning down the arm. Denies JETER. Pt does wear a helmet when flying that has about 5lbs to it. Pt has LBP issues but that hasn't been an issue recently. Pt report that gets worse when she gains weight. She has worked w/ a chiro 3x and it wasn't helping. This was in February when is was really bad. Massage has helped but not fully. Treatment Goals Patient/Caregiver Goals be able to carry backpack, not have pain during work, be able lift more evenly PT-OP-C Subjective Start: 04/29/23 14:56 Freq: Status: Active Protocol: Document 06/01/23 16:48 [facility] (Rec: 06/01/23 17:54 [facility] [id number]) OP-PT Subjective Patient Comments Patient Comments Pt reports she is feeling better post but today L pec feels really tense and tight. PT-OP-F Manual Assessment Start: 04/29/23 14:56 Freq: Status: Active Protocol: Document 05/06/23 15:16 [facility] (Rec: 05/06/23 16:52 [facility] [id number]) Manual Assessments Joint Mobility Assessment Joint Mobility Assessment L 1st rib elevated PT-OP-J Posture/Palpation/Skin Start: 04/29/23 14:56 Freq: Status: Active Protocol: Document 05/06/23 15:16 [facility] (Rec: 05/06/23 16:52 [facility] [id number]) Posture Evaluation [facility] Postural Classification System [facility] Postural Classifications Posterior/Posterior Elbow Flexion Test 1 Comments Posture Comments ant tipped and abd L scap PT-OP-K Range of Motion Start: 04/29/23 14:56 Freq: Status: Active Protocol: Document 05/06/23 15:16 [facility] (Rec: 05/06/23 16:52 [facility] [id number]) Cervical Spine Range of Motion Cervical Spine Active Degrees Flexion 62 Extension 45 Rotation Left 58 Rotation Right 62 Lateral Flexion Left 34 Lateral Flexion Right 35 Comments ext & R SB inc pain; LUE WNL except 90/90 ER PT-OP-L Special Tests Start: 04/29/23 14:56 Freq: Status: Active Protocol: Document 05/06/23 15:16 [facility] (Rec: 05/06/23 16:52 [facility] [id number]) Special Tests Cervical Spine Special Tests Traction Test Results inc symptoms down UE Spurling's Test Test Results inc symptoms down UE Neural Special Tests- Upper Body Radial Nerve Tension Comments positive l Ulnar Nerve Tension Comments relief of symptoms Median Nerve Tension Comments positive L PT-OP-M Strength Start: 04/29/23 14:56 Freq: Status: Active Protocol: Document 05/06/23 15:16 [facility] (Rec: 05/06/23 16:52 [id number] Shoulder Strength Shoulder Manual Muscle Testing Right Flexion 5 Normal Extension 5 Normal Abduction (C5) 5 Normal Internal Rotation 5 Normal Left Flexion 4 Good Extension 4 Good Abduction (C5) 4+ Good+ External Rotation 4- Good- Internal Rotation 5 Normal Elbow/Forearm Strength Elbow and Forearm Manual Muscle Testing Right Flexion (C6) 5 Normal Extension (C7) 5 Normal Left Flexion (C6) 5 Normal Extension (C7) 4 Good Wrist Strength Wrist Manual Muscle Testing Right Flexion (C7) 5 Normal Extension (C6) 5 Normal Left Flexion (C7) 4 Good Extension (C6) 5 Normal Hand Display Specialist/Pinch Strength Hand Dominance Hand Dominance Right Hand Strength Right Comments 67#, 74#, 68# Left Comments 65lb, 55lb, 45# PT-OP-Q Treatments Start: 04/29/23 14:56 Freq: Status: Active Protocol: Document 06/01/23 16:48 [facility] (Rec: 06/01/23 17:54 [id number] Manual Therapy Treatment Soft Tissue Mobilization pec Body Location L minor and major & into biceps Mobilization Type Rolling Comments w/ UE med n glide cervical Body Location L UT, scalenes, SCM Mobilization Type Rolling Intensity/Depth Moderate Comments s/l and seated w/SB and scap dep Joint Mobilizations AC Joint L ant clavicle FM SC Joint L sup & distraction Fm ribs Comments L general rib mobs dep s/l w/ scap ant dep 2. rib 2 AP FM 3. rib 1 caudal FM in seated w/sB 5. seated ribs L PA and caudal rib 6 and 7 FM Neuro Re-Education Treatment Other Activities PNF Comments L post dep w/irradiation from pivot prone position sustained holds 2x2 min scap set Details pt awareness of neutral scap position Comments 1. shrug, ER UEs and depress to set scap x10 2. flex, IR then add for set x6 PT-OP-T Assessment and Plan Start: 04/29/23 14:56 Freq: Status: Active Protocol: Document 06/01/23 16:48 [facility] (Rec: 06/01/23 17:54 [id number] Physical Therapy Assessment Goals activities Short Term Goal (STG) Pt will be able to sleep comfortably w/o having to change position to dec symptoms into LUE. STG Duration 06/14/23 Long-Term Goal (LTG) Pt will be able to lift and swim w/o inc L shoulder pain. LTG Duration 07/15/23 strength Short Term Goal (STG) pt will be indep w/HEP STG Duration 06/14/23 Long-Term Goal (LTG) Pt will score 5/5 UE strength on L and at least 4/5 EFT to show improved stabiltiy in order pt to do all lifting tasks w/o inc pain. LTG Duration 07/15/23 work Short Term Goal (STG) Pt will be able to carry a backpack as needed for work and hiking w/o inc pain and be able to sit at desk to work w /o inc pain STG Duration 06/14/23 Long-Term Goal (LTG) pt will be able to bend over patients as needed to treat them w/o inc pain. LTG Duration 07/15/23 Assessment Summary Assessment Pt had improved cervical B SB after manual w/improved ROM to full rom. She also noted much improved symptoms after manual and sat in improved position w/less fwd tipping of scap and abd. Physical Therapy Plan Frequency and Duration Frequency of Treatment 1x/Week Duration of treatment (weeks) 10 Plan of Care Start Date 05/06/23 Plan of Care End Date 07/15/23 Next Visit Focus/Plan Next Note Type Treatment Note Next Visit Plan cont to work on scap ability to depress; check on wall posture; prone prop
--- NOTE | 2023-06-22 17:55 | PT.OTN ---
Current Diagnoses Pain in left shoulder (06/22/23) Physical Therapy Treatment Note PT-OP-A Visit Information Start: 04/29/23 14:56 Freq: Status: Active Protocol: Document 06/22/23 17:46 [facility] (Rec: 06/23/23 17:55 [facility] [id number]) Out-Patient Physical Therapy Visit Information Visit Information Visit Type Treatment Note Visit Start Time 16:04 Visit Stop Time 16:50 Total Visit Minutes 46 Visit Number 5 Number of DOCUMENTATION NURSE Visits 0 PT-OP-B Current Condition Start: 04/29/23 14:56 Freq: Status: Active Protocol: Document 05/06/23 15:16 [facility] (Rec: 05/06/23 16:52 [facility] [id number]) Current Condition History of Current Condition Onset Date January Current Complaints L shoulder History of Current Condition Pt reports in January she got a knot in L med scap border area then in February, her 2nd and 3rd finger is tingling. Now she gets a spasm in armpit. She likes to sleep on stomach and her L lat arm and into lat forearm. She is trying to sit better at her desk. 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 She gets the pain when bending over. She hasn't swam. She did light weights . Pt was doing a challenge w/ squats, dips, push ups in November and December and is wondering if that was par to fit. Now she is in the gym and she is working out. She has a noticed she is weaker. She can't bench d/t the signficant weakness. pt lean back when sleeping d/t otherwise arm goes numb. Motrin didn't help. She took a 12 hour steriod from the doc which helepd only a little. She feels like L shoulder has some dec ROM. Gets some shooting pain in lat neck. when MT was working on R side of neck, felt it burning down the arm. Denies JETER. Pt does wear a helmet when flying that has about 5lbs to it. Pt has LBP issues but that hasn't been an issue recently. Pt report that gets worse when she gains weight. She has worked w/ a chiro 3x and it wasn't helping. This was in February when is was really bad. Massage has helped but not fully. Treatment Goals Patient/Caregiver Goals be able to carry backpack, not have pain during work, be able lift more evenly PT-OP-C Subjective Start: 04/29/23 14:56 Freq: Status: Active Protocol: Document 06/22/23 17:46 [facility] (Rec: 06/23/23 17:55 [facility] [id number]) OP-PT Subjective Patient Comments Patient Comments Pt reports swimming yesterday and notes had difficulty w/ backstroke w/discomfort in post scap region. Less numbness but it still does happen PT-OP-F Manual Assessment Start: 04/29/23 14:56 Freq: Status: Active Protocol: Document 05/06/23 15:16 [facility] (Rec: 05/06/23 16:52 [facility] [id number]) Manual Assessments Joint Mobility Assessment Joint Mobility Assessment L 1st rib elevated PT-OP-J Posture/Palpation/Skin Start: 04/29/23 14:56 Freq: Status: Active Protocol: Document 05/06/23 15:16 [facility] (Rec: 05/06/23 16:52 [facility] [id number]) Posture Evaluation [facility] Postural Classification System [facility] Postural Classifications Posterior/Posterior Elbow Flexion Test 1 Comments Posture Comments ant tipped and abd L scap PT-OP-K Range of Motion Start: 04/29/23 14:56 Freq: Status: Active Protocol: Document 05/06/23 15:16 [facility] (Rec: 05/06/23 16:52 [facility] [id number]) Cervical Spine Range of Motion Cervical Spine Active Degrees Flexion 62 Extension 45 Rotation Left 58 Rotation Right 62 Lateral Flexion Left 34 Lateral Flexion Right 35 Comments ext & R SB inc pain; LUE WNL except 90/90 ER PT-OP-L Special Tests Start: 04/29/23 14:56 Freq: Status: Active Protocol: Document 05/06/23 15:16 [facility] (Rec: 05/06/23 16:52 [facility] [id number]) Special Tests Cervical Spine Special Tests Traction Test Results inc symptoms down UE Spurling's Test Test Results inc symptoms down UE Neural Special Tests- Upper Body Radial Nerve Tension Comments positive l Ulnar Nerve Tension Comments relief of symptoms Median Nerve Tension Comments positive L PT-OP-M Strength Start: 04/29/23 14:56 Freq: Status: Active Protocol: Document 05/06/23 15:16 [facility] (Rec: 05/06/23 16:52 [facility] [id number]) Shoulder Strength Shoulder Manual Muscle Testing Right Flexion 5 Normal Extension 5 Normal Abduction (C5) 5 Normal Internal Rotation 5 Normal Left Flexion 4 Good Extension 4 Good Abduction (C5) 4+ Good+ External Rotation 4- Good- Internal Rotation 5 Normal Elbow/Forearm Strength Elbow and Forearm Manual Muscle Testing Right Flexion (C6) 5 Normal Extension (C7) 5 Normal Left Flexion (C6) 5 Normal Extension (C7) 4 Good Wrist Strength Wrist Manual Muscle Testing Right Flexion (C7) 5 Normal Extension (C6) 5 Normal Left Flexion (C7) 4 Good Extension (C6) 5 Normal Hand Patient Registration Clerk/Pinch Strength Hand Dominance Hand Dominance Right Hand Strength Right Comments 67#, 74#, 68# Left Comments 65lb, 55lb, 45# PT-OP-Q Treatments Start: 04/29/23 14:56 Freq: Status: Active Protocol: Document 06/22/23 17:46 [facility] (Rec: 06/23/23 17:55 [facility] [id number]) Therapeutic Exercises Other Exercises 1/2 kneel Other Exercise Name 1. ER 90/90 2. trunk flex w/ rot R Side left Equipment Used 6 ea Reps/Minutes for dissociation Manual Therapy Treatment Soft Tissue Mobilization post Body Location L rhomobids and lats Mobilization Type Rolling,Strumming,Sustained Pressure Intensity/Depth Moderate Comments w/scap dep cervical Body Location L UT, LS Mobilization Type Rolling Intensity/Depth Moderate Comments s/l and seated w/SB and scap dep Joint Mobilizations GH Joint L inf w/dowel overhead FM & post IR FM 90/90 Comments w/manual faciliation at end range AC Joint L ant clavicle FM Comments w/ dowel overhead thoracic Comments transverse seated R T4-9 FM Neuro Re-Education Treatment Other Activities PNF Reps/Duration 15 min Comments 1. L ant dep irradiation w/ mass flex pattern w/L ant elevation of pelvis progressed to COI of each indivually then togetther 2. prolonged hold supine L ext add IR pattern w/chin tuck and opp press into LE PT-OP-T Assessment and Plan Start: 04/29/23 14:56 Freq: Status: Active Protocol: Document 06/22/23 17:46 [facility] (Rec: 06/23/23 17:55 [facility] [id number]) Physical Therapy Assessment Goals activities Short Term Goal (STG) Pt will be able to sleep comfortably w/o having to change position to dec symptoms into LUE. STG Duration 06/14/23 [facility] Goal (LTG) Pt will be able to lift and swim w/o inc L shoulder pain. LTG Duration 07/15/23 strength Short Term Goal (STG) pt will be indep w/HEP STG Duration 06/14/23 Federal Mediation Commissioner Goal (LTG) Pt will score 5/5 UE strength on L and at least 4/5 EFT to show improved stabiltiy in order pt to do all lifting tasks w/o inc pain. LTG Duration 07/15/23 work Short Term Goal (STG) Pt will be able to carry a backpack as needed for work and hiking w/o inc pain and be able to sit at desk to work w /o inc pain STG Duration 06/14/23 Federal Mediation Commissioner Goal (LTG) pt will be able to bend over patients as needed to treat them w/o inc pain. LTG Duration 07/15/23 Assessment Summary Assessment Pt had improved ability to get into position for backstroke after manual care w/less pain and imrpoved abiltity to ER at 90/90 w/ less pain Physical Therapy Plan Frequency and Duration Frequency of Treatment 1x/Week Duration of treatment (weeks) 10 Plan of Care Start Date 05/06/23 Plan of Care End Date 07/15/23 Next Visit Focus/Plan Next Note Type Treatment Note Next Visit Plan cont to work on scap ability to depress and work on PNF for stabiltiy
--- NOTE | 2023-07-06 18:41 | PT.OTN ---
Current Diagnoses Pain in left shoulder (07/06/23) Physical Therapy Treatment Note PT-OP-A Visit Information Start: 04/29/23 14:56 Freq: Status: Active Protocol: Document 07/06/23 16:10 [facility] (Rec: 07/06/23 18:41 [facility] [id number]) Out-Patient Physical Therapy Visit Information Visit Information Visit Type Progress Note Visit Start Time 16:07 Visit Stop Time 16:47 Total Visit Minutes 40 Visit Number 6 Number of HUMAN RESOURCES FILE CLERK Visits 0 PT-OP-B Current Condition Start: 04/29/23 14:56 Freq: Status: Active Protocol: Document 05/06/23 15:16 [facility] (Rec: 05/06/23 16:52 [facility] [id number]) Current Condition History of Current Condition Onset Date January Current Complaints L shoulder History of Current Condition Pt reports in January she got a knot in L med scap border area then in February, her 2nd and 3rd finger is tingling. Now she gets a spasm in armpit. She likes to sleep on stomach and her L lat arm and into lat forearm. She is trying to sit better at her desk. 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 She gets the pain when bending over. She hasn't swam. She did light weights . Pt was doing a challenge w/ squats, dips, push ups in November and December and is wondering if that was par to fit. Now she is in the gym and she is working out. She has a noticed she is weaker. She can't bench d/t the signficant weakness. pt lean back when sleeping d/t otherwise arm goes numb. Motrin didn't help. She took a 12 hour steriod from the doc which helepd only a little. She feels like L shoulder has some dec ROM. Gets some shooting pain in lat neck. when MT was working on R side of neck, felt it burning down the arm. Denies JETER. Pt does wear a helmet when flying that has about 5lbs to it. Pt has LBP issues but that hasn't been an issue recently. Pt report that gets worse when she gains weight. She has worked w/ a chiro 3x and it wasn't helping. This was in February when is was really bad. Massage has helped but not fully. Treatment Goals Patient/Caregiver Goals be able to carry backpack, not have pain during work, be able lift more evenly PT-OP-C Subjective Start: 04/29/23 14:56 Freq: Status: Active Protocol: Document 07/06/23 16:10 [facility] (Rec: 07/06/23 18:41 [facility] [id number]) OP-PT Subjective Patient Comments Patient Comments Pt reports pain mostly notable when lifting up her pack for work or doffing tight shirt or bra PT-OP-F Manual Assessment Start: 04/29/23 14:56 Freq: Status: Active Protocol: Document 05/06/23 15:16 [facility] (Rec: 05/06/23 16:52 [facility] [id number]) Manual Assessments Joint Mobility Assessment Joint Mobility Assessment L 1st rib elevated PT-OP-J Posture/Palpation/Skin Start: 04/29/23 14:56 Freq: Status: Active Protocol: Document 05/06/23 15:16 [facility] (Rec: 05/06/23 16:52 [facility] [id number]) Posture Evaluation [facility] Postural Classification System [place] Postural Classifications Posterior/Posterior Elbow Flexion Test 1 Comments Posture Comments ant tipped and abd L scap PT-OP-K Range of Motion Start: 04/29/23 14:56 Freq: Status: Active Protocol: Document 05/06/23 15:16 [facility] (Rec: 05/06/23 16:52 [facility] [id number]) Cervical Spine Range of Motion Cervical Spine Active Degrees Flexion 62 Extension 45 Rotation Left 58 Rotation Right 62 Lateral Flexion Left 34 Lateral Flexion Right 35 Comments ext & R SB inc pain; LUE WNL except 90/90 ER PT-OP-L Special Tests Start: 04/29/23 14:56 Freq: Status: Active Protocol: Document 05/06/23 15:16 [facility] (Rec: 05/06/23 16:52 [facility] [id number]) Special Tests Cervical Spine Special Tests Traction Test Results inc symptoms down UE Spurling's Test Test Results inc symptoms down UE Neural Special Tests- Upper Body Radial Nerve Tension Comments positive l Ulnar Nerve Tension Comments relief of symptoms Median Nerve Tension Comments positive L PT-OP-M Strength Start: 04/29/23 14:56 Freq: Status: Active Protocol: Document 07/06/23 16:10 [facility] (Rec: 07/06/23 18:41 [facility] [id number]) Shoulder Strength Shoulder Manual Muscle Testing Right Flexion 5 Normal Extension 5 Normal Abduction (C5) 5 Normal External Rotation 5 Normal Internal Rotation 5 Normal Horizontal Abduction 5 Normal Horizontal Adduction 5 Normal Left Flexion 4+ Good+ Extension 4+ Good+ Abduction (C5) 4+ Good+ External Rotation 4 Good Internal Rotation 5 Normal Horizontal Abduction 5 Normal Horizontal Adduction 5 Normal Comments pain w/testing flex, ext, abd ER Elbow/Forearm Strength Elbow and Forearm Manual Muscle Testing Right Flexion (C6) 5 Normal Extension (C7) 5 Normal Left Flexion (C6) 5 Normal Extension (C7) 5 Normal Wrist Strength Wrist Manual Muscle Testing Right Flexion (C7) 5 Normal Extension (C6) 5 Normal Left Flexion (C7) 5 Normal Extension (C6) 5 Normal PT-OP-Q Treatments Start: 04/29/23 14:56 Freq: Status: Active Protocol: Document 07/06/23 16:10 [facility] (Rec: 07/06/23 18:41 [facility] [id number]) Therapeutic Exercises Prone Exercises row Prone Exercise Name 90 deg abd Side left Reps/Minutes 10 Comments cues for scap dep ER Prone Exercise Name 90/90 Side left Reps/Minutes 10 Standing Exercises ER Side bilateral Equipment Used orange band & towel at elbow Reps/Minutes 2x10 Manual Therapy Treatment Soft Tissue Mobilization scap Body Location L subscap, teres w/rot Mobilization Type Sustained Pressure Intensity/Depth Moderate Body Position Supine post Body Location L deltoid Mobilization Type Rolling,Strumming,Sustained Pressure Intensity/Depth Moderate Comments w/ ER pec Body Location L minor and major Mobilization Type Sustained Pressure Comments w/IR/ER Joint Mobilizations GH Comments L inf FM in prone AC Comments L clavicle ant FM in prone ER thoracic Comments Transverse R T4-7 FM w/hand in IR, ER and Habd PT-OP-T Assessment and Plan Start: 04/29/23 14:56 Freq: Status: Active Protocol: Document 07/06/23 16:10 [facility] (Rec: 07/06/23 18:41 [facility] [id number]) Physical Therapy Assessment Goals activities Short Term Goal (STG) Pt will be able to sleep comfortably w/o having to change position to dec symptoms into LUE. STG Duration achieved Fci Goal (LTG) Pt will be able to lift and swim w/o inc L shoulder pain. 07/06-limited lifting d/t some pain; pain w/backstroke mild LTG Duration 09/14/23 strength Short Term Goal (STG) pt will be indep w/HEP STG Duration achieved advancinga s able Fci Goal (LTG) Pt will score 5/5 UE strength on L and at least 4/5 EFT to show improved stabiltiy in order pt to do all lifting tasks w/o inc pain. 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 LTG Duration achieved 07/06 Assessment Summary Assessment Pt has made a lot of progress and has much imrpoved functional ability. She has pain w/act of loading backpack on but not carrying still and pulling off tight shrits or sport bras. Pain is mostly w/ ER and pt did have much improved ROM after manual treatment. She is still limited in L shoulder strenght d/t pain but all areas lower show improved strength. Cont PT to work on cervical and scap stabiltiy and improving LUE mechanics to dec pain w/ daily activities. Physical Therapy Plan Frequency and Duration Frequency of Treatment 1x/Week Duration of treatment (weeks) 10 Plan of Care Start Date 07/06/23 Plan of Care End Date 09/14/23 Therapeutic Interventions Therapeutic Interventions Gait Training,Home Exercise Program,Joint Mobilizations, Manual Therapy,Neuromuscular Re-education,Orthotic/ Prosthetic Management,Patient/ Caregiver Education,Self-Care/ Home Management,Soft Tissue Mobilization,Taping, Therapeutic Activities, Therapeutic Exercises Modalities Cold Pack/Ice Massage,Electric Stimulation,Hot Packs, Infrared Therapy,Traction- Mechanical,Ultrasound Next Visit Focus/Plan Next Note Type Treatment Note Next Visit Plan cont to work on scap ability to depress and work on PNF for stabiltiy; ER strength & IR
--- NOTE | 2023-07-06 18:41 | PT.OPPOC ---
Physical, Occupational & Speech Therapy At [facility] Current Diagnoses Pain in left shoulder (07/06/23) Visit Care Team Role Provider Type Wilian Ford MD Attending Provider Physician Family Provider Primary Care Provider Referring Provider Specialty: Internal Medicine Address: [address] [place] [address], [address], [place], [address] Email: [email or web address] Plan Of Care PT-OP-T Assessment and Plan Start: 04/29/23 14:56 Freq: Status: Active Protocol: Document 07/06/23 16:10 [facility] (Rec: 07/06/23 18:41 [facility] [id number]) Physical Therapy Assessment Goals activities Short Term Goal (STG) Pt will be able to sleep comfortably w/o having to change position to dec symptoms into LUE. STG Duration achieved Alf Goal (LTG) Pt will be able to lift and swim w/o inc L shoulder pain. 07/06-limited lifting d/t some pain; pain w/backstroke mild LTG Duration 09/14/23 strength Short Term Goal (STG) pt will be indep w/HEP STG Duration achieved advancinga s able Alf Goal (LTG) Pt will score 5/5 UE strength on L and at least 4/5 EFT to show improved stabiltiy in order pt to do all lifting tasks w/o inc pain. 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 LTG Duration achieved 07/06 Assessment Summary Assessment Pt has made a lot of progress and has much imrpoved functional ability. She has pain w/act of loading backpack on but not carrying still and pulling off tight shrits or sport bras. Pain is mostly w/ ER and pt did have much improved ROM after manual treatment. She is still limited in L shoulder strenght d/t pain but all areas lower show improved strength. Cont PT to work on cervical and scap stabiltiy and improving LUE mechanics to dec pain w/ daily activities. Physical Therapy Plan Frequency and Duration Frequency of Treatment 1x/Week Duration of treatment (weeks) 10 Plan of Care Start Date 07/06/23 Plan of Care End Date 09/14/23 Therapeutic Interventions Therapeutic Interventions Gait Training,Home Exercise Program,Joint Mobilizations, Manual Therapy,Neuromuscular Re-education,Orthotic/ Prosthetic Management,Patient/ Caregiver Education,Self-Care/ Home Management,Soft Tissue Mobilization,Taping, Therapeutic Activities, Therapeutic Exercises Modalities Cold Pack/Ice Massage,Electric Stimulation,Hot Packs, Infrared Therapy,Traction- Mechanical,Ultrasound Next Visit Focus/Plan Next Note Type Treatment Note Next Visit Plan cont to work on scap ability to depress and work on PNF for stabiltiy; ER strength & IR Plan of Care Dates Plan of Care Start Date 07/06/23 Plan of Care End Date 09/14/23 Electronically Signed by: Elif Her, PT 07/06/23 [id number] If you are in agreement with this Plan of Care, please return a signed and dated copy. I have reviewed this Plan of Care and certify that the skilled therapy services above are required to meet the patient?s needs. Physician Signature Date Printed Name and Credentials Clinical Instructor Signature Printed Name and Credentials
--- NOTE | 2023-07-13 18:16 | PT.OTN ---
Current Diagnoses Pain in left shoulder (07/13/23) Physical Therapy Treatment Note PT-OP-A Visit Information Start: 04/29/23 14:56 Freq: Status: Active Protocol: Document 07/13/23 15:59 [facility] (Rec: 07/13/23 18:16 [facility] [id number]) Out-Patient Physical Therapy Visit Information Visit Information Visit Type Treatment Note Visit Start Time 16:03 Visit Stop Time 16:46 Total Visit Minutes 43 Visit Number 7 Number of DATA ANALYTICS CHIEF SCIENTIST Visits 0 PT-OP-B Current Condition Start: 04/29/23 14:56 Freq: Status: Active Protocol: Document 05/06/23 15:16 [facility] (Rec: 05/06/23 16:52 [facility] [id number]) Current Condition History of Current Condition Onset Date January Current Complaints L shoulder History of Current Condition Pt reports in January she got a knot in L med scap border area then in February, her 2nd and 3rd finger is tingling. Now she gets a spasm in armpit. She likes to sleep on stomach and her L lat arm and into lat forearm. She is trying to sit better at her desk. 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 She gets the pain when bending over. She hasn't swam. She did light weights . Pt was doing a challenge w/ squats, dips, push ups in November and December and is wondering if that was par to fit. Now she is in the gym and she is working out. She has a noticed she is weaker. She can't bench d/t the signficant weakness. pt lean back when sleeping d/t otherwise arm goes numb. Motrin didn't help. She took a 12 hour steriod from the doc which helepd only a little. She feels like L shoulder has some dec ROM. Gets some shooting pain in lat neck. when MT was working on R side of neck, felt it burning down the arm. Denies JETER. Pt does wear a helmet when flying that has about 5lbs to it. Pt has LBP issues but that hasn't been an issue recently. Pt report that gets worse when she gains weight. She has worked w/ a chiro 3x and it wasn't helping. This was in February when is was really bad. Massage has helped but not fully. Treatment Goals Patient/Caregiver Goals be able to carry backpack, not have pain during work, be able lift more evenly PT-OP-C Subjective Start: 04/29/23 14:56 Freq: Status: Active Protocol: Document 07/13/23 15:59 [facility] (Rec: 07/13/23 18:16 [facility] [id number]) OP-PT Subjective Patient Comments Patient Comments Pt reports doing better after last timea nd has been really trying to strengthen arm PT-OP-F Manual Assessment Start: 04/29/23 14:56 Freq: Status: Active Protocol: Document 05/06/23 15:16 [facility] (Rec: 05/06/23 16:52 [facility] [id number]) Manual Assessments Joint Mobility Assessment Joint Mobility Assessment L 1st rib elevated PT-OP-J Posture/Palpation/Skin Start: 04/29/23 14:56 Freq: Status: Active Protocol: Document 05/06/23 15:16 [facility] (Rec: 05/06/23 16:52 [facility] [id number]) Posture Evaluation [facility] Postural Classification System [facility] Postural Classifications Posterior/Posterior Elbow Flexion Test 1 Comments Posture Comments ant tipped and abd L scap PT-OP-K Range of Motion Start: 04/29/23 14:56 Freq: Status: Active Protocol: Document 05/06/23 15:16 [facility] (Rec: 05/06/23 16:52 [facility] [id number]) Cervical Spine Range of Motion Cervical Spine Active Degrees Flexion 62 Extension 45 Rotation Left 58 Rotation Right 62 Lateral Flexion Left 34 Lateral Flexion Right 35 Comments ext & R SB inc pain; LUE WNL except 90/90 ER PT-OP-L Special Tests Start: 04/29/23 14:56 Freq: Status: Active Protocol: Document 05/06/23 15:16 [facility] (Rec: 05/06/23 16:52 [facility] [id number]) Special Tests Cervical Spine Special Tests Traction Test Results inc symptoms down UE Spurling's Test Test Results inc symptoms down UE Neural Special Tests- Upper Body Radial Nerve Tension Comments positive l Ulnar Nerve Tension Comments relief of symptoms Median Nerve Tension Comments positive L PT-OP-M Strength Start: 04/29/23 14:56 Freq: Status: Active Protocol: Document 07/06/23 16:10 [facility] (Rec: 07/06/23 18:41 [facility] [id number]) Shoulder Strength Shoulder Manual Muscle Testing Right Flexion 5 Normal Extension 5 Normal Abduction (C5) 5 Normal External Rotation 5 Normal Internal Rotation 5 Normal Horizontal Abduction 5 Normal Horizontal Adduction 5 Normal Left Flexion 4+ Good+ Extension 4+ Good+ Abduction (C5) 4+ Good+ External Rotation 4 Good Internal Rotation 5 Normal Horizontal Abduction 5 Normal Horizontal Adduction 5 Normal Comments pain w/testing flex, ext, abd ER Elbow/Forearm Strength Elbow and Forearm Manual Muscle Testing Right Flexion (C6) 5 Normal Extension (C7) 5 Normal Left Flexion (C6) 5 Normal Extension (C7) 5 Normal Wrist Strength Wrist Manual Muscle Testing Right Flexion (C7) 5 Normal Extension (C6) 5 Normal Left Flexion (C7) 5 Normal Extension (C6) 5 Normal PT-OP-Q Treatments Start: 04/29/23 14:56 Freq: Status: Active Protocol: Document 07/13/23 15:59 [facility] (Rec: 07/13/23 18:16 [facility] [id number]) Therapeutic Exercises Prone Exercises Ws Side left Reps/Minutes 10 Comments cues to lead w/hand row Prone Exercise Name 90 deg abd Side left Reps/Minutes 5 Comments cues for scap dep ER Prone Exercise Name 90/90 Side left Reps/Minutes 8 Standing Exercises stretch Standing Exercise Name pec at wall Side left Reps/Minutes 30 sec ER Side bilateral Equipment Used orange band & towel at elbow Reps/Minutes 2x10 Other Exercises 1/2 kneel Other Exercise Name 1. ER 90/90 2. trunk flex w/ rot R Side left Equipment Used 6 ea Reps/Minutes for dissociation Manual Therapy Treatment Soft Tissue Mobilization scap Body Location L UT/LS & scalenes Mobilization Type Sustained Pressure Intensity/Depth Moderate Body Position Sidelying Comments w/scap dep post Body Location L deltoid, rhomboids and lats Mobilization Type Rolling,Strumming,Sustained Pressure Intensity/Depth Moderate Comments w/ ER & scap dep pec Body Location L minor and major Mobilization Type Sustained Pressure Comments w/IR/ER Joint Mobilizations GH Comments L post translation, lat gapping, caudal glide and translation FM AC Comments L clavicle ant FM s/l and supine w/shoulder ER SC Comments L sup FM ribs Comments tib 1-3 PA FM; rib 5 &6 external torsion FM thoracic Comments PA T7 FM PT-OP-T Assessment and Plan Start: 04/29/23 14:56 Freq: Status: Active Protocol: Document 07/13/23 15:59 [facility] (Rec: 07/13/23 18:16 [facility] [id number]) Physical Therapy Assessment Goals activities Short Term Goal (STG) Pt will be able to sleep comfortably w/o having to change position to dec symptoms into LUE. STG Duration achieved Certified Professional Coder Goal (LTG) Pt will be able to lift and swim w/o inc L shoulder pain. 07/06-limited lifting d/t some pain; pain w/backstroke mild LTG Duration 09/14/23 strength Short Term Goal (STG) pt will be indep w/HEP STG Duration achieved advancinga s able Mcfp Goal (LTG) Pt will score 5/5 UE strength on L and at least 4/5 EFT to show improved stabiltiy in order pt to do all lifting tasks w/o inc pain. 07/06-much improved; EFT 2/5 LTG Duration 09/14/23 work Short Term Goal (STG) Pt will be able to carry a backpack as needed for work and hiking w/o inc pain and be able to sit at desk to work w /o inc pain STG Duration 08/14/23 Certified Professional Coder Goal (LTG) pt will be able to bend over patients as needed to treat them w/o inc pain. LTG Duration achieved 07/06 Assessment Summary Assessment Pt had improved shoudler ER at 90 today and cont to improve w/manual teratment w/improved motion w/less pain in post scap region. She cont to have signifiacnt ribcage and also GH restriction. Physical Therapy Plan Frequency and Duration Frequency of Treatment 1x/Week Duration of treatment (weeks) 10 Plan of Care Start Date 07/06/23 Plan of Care End Date 09/14/23 Next Visit Focus/Plan Next Note Type Treatment Note Next Visit Plan cont to work on scap ability to depress and work on PNF for stabiltiy; ER strength & ROM
--- NOTE | 2023-07-28 15:51 | PT.OTN ---
Current Diagnoses Pain in left shoulder (07/28/23) Physical Therapy Treatment Note PT-OP-A Visit Information Start: 04/29/23 14:56 Freq: Status: Active Protocol: Document 07/28/23 15:40 [facility] (Rec: 07/28/23 15:51 [facility] [id number]) Out-Patient Physical Therapy Visit Information Visit Information Visit Type Treatment Note Visit Start Time 14:35 Visit Stop Time 15:15 Total Visit Minutes 40 Visit Number 8 Number of FLOOR COVERING INSTALLER Visits 0 PT-OP-B Current Condition Start: 04/29/23 14:56 Freq: Status: Active Protocol: Document 05/06/23 15:16 [facility] (Rec: 05/06/23 16:52 [facility] [id number]) Current Condition History of Current Condition Onset Date January Current Complaints L shoulder History of Current Condition Pt reports in January she got a knot in L med scap border area then in February, her 2nd and 3rd finger is tingling. Now she gets a spasm in armpit. She likes to sleep on stomach and her L lat arm and into lat forearm. She is trying to sit better at her desk. 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 She gets the pain when bending over. She hasn't swam. She did light weights . Pt was doing a challenge w/ squats, dips, push ups in November and December and is wondering if that was par to fit. Now she is in the gym and she is working out. She has a noticed she is weaker. She can't bench d/t the signficant weakness. pt lean back when sleeping d/t otherwise arm goes numb. Motrin didn't help. She took a 12 hour steriod from the doc which helepd only a little. She feels like L shoulder has some dec ROM. Gets some shooting pain in lat neck. when MT was working on R side of neck, felt it burning down the arm. Denies JETER. Pt does wear a helmet when flying that has about 5lbs to it. Pt has LBP issues but that hasn't been an issue recently. Pt report that gets worse when she gains weight. She has worked w/ a chiro 3x and it wasn't helping. This was in February when is was really bad. Massage has helped but not fully. Treatment Goals Patient/Caregiver Goals be able to carry backpack, not have pain during work, be able lift more evenly PT-OP-C Subjective Start: 04/29/23 14:56 Freq: Status: Active Protocol: Document 07/28/23 15:40 [facility] (Rec: 07/28/23 15:51 [facility] [id number]) OP-PT Subjective Patient Comments Patient Comments Pt reprots taking off sports bra and lifting pack are the worst activities. Patient Reported Progress Improving PT-OP-F Manual Assessment Start: 04/29/23 14:56 Freq: Status: Active Protocol: Document 05/06/23 15:16 [facility] (Rec: 05/06/23 16:52 [facility] [id number]) Manual Assessments Joint Mobility Assessment Joint Mobility Assessment L 1st rib elevated PT-OP-J Posture/Palpation/Skin Start: 04/29/23 14:56 Freq: Status: Active Protocol: Document 05/06/23 15:16 [facility] (Rec: 05/06/23 16:52 [facility] [id number]) Posture Evaluation [facility] Postural Classification System [facility] Postural Classifications Posterior/Posterior Elbow Flexion Test 1 Comments Posture Comments ant tipped and abd L scap PT-OP-K Range of Motion Start: 04/29/23 14:56 Freq: Status: Active Protocol: Document 05/06/23 15:16 [facility] (Rec: 05/06/23 16:52 [facility] [id number]) Cervical Spine Range of Motion Cervical Spine Active Degrees Flexion 62 Extension 45 Rotation Left 58 Rotation Right 62 Lateral Flexion Left 34 Lateral Flexion Right 35 Comments ext & R SB inc pain; LUE WNL except 90/90 ER PT-OP-L Special Tests Start: 04/29/23 14:56 Freq: Status: Active Protocol: Document 05/06/23 15:16 [facility] (Rec: 05/06/23 16:52 [facility] [id number]) Special Tests Cervical Spine Special Tests Traction Test Results inc symptoms down UE Spurling's Test Test Results inc symptoms down UE Neural Special Tests- Upper Body Radial Nerve Tension Comments positive l Ulnar Nerve Tension Comments relief of symptoms Median Nerve Tension Comments positive L PT-OP-M Strength Start: 04/29/23 14:56 Freq: Status: Active Protocol: Document 07/06/23 16:10 [facility] (Rec: 07/06/23 18:41 [facility] [id number]) Shoulder Strength Shoulder Manual Muscle Testing Right Flexion 5 Normal Extension 5 Normal Abduction (C5) 5 Normal External Rotation 5 Normal Internal Rotation 5 Normal Horizontal Abduction 5 Normal Horizontal Adduction 5 Normal Left Flexion 4+ Good+ Extension 4+ Good+ Abduction (C5) 4+ Good+ External Rotation 4 Good Internal Rotation 5 Normal Horizontal Abduction 5 Normal Horizontal Adduction 5 Normal Comments pain w/testing flex, ext, abd ER Elbow/Forearm Strength Elbow and Forearm Manual Muscle Testing Right Flexion (C6) 5 Normal Extension (C7) 5 Normal Left Flexion (C6) 5 Normal Extension (C7) 5 Normal Wrist Strength Wrist Manual Muscle Testing Right Flexion (C7) 5 Normal Extension (C6) 5 Normal Left Flexion (C7) 5 Normal Extension (C6) 5 Normal PT-OP-Q Treatments Start: 04/29/23 14:56 Freq: Status: Active Protocol: Document 07/28/23 15:40 [facility] (Rec: 07/28/23 15:51 [facility] [id number]) Manual Therapy Treatment Soft Tissue Mobilization post Body Location L lat, rhomboids Mobilization Type Rolling,Strumming,Sustained Pressure Intensity/Depth Moderate Comments w/ ER pec Body Location L minor and major Mobilization Type Sustained Pressure Comments w/IR/ER Joint Mobilizations GH Comments L inf glide FM w/90/90 ER ribs Comments cdaul rib 3 seated FM L; general L caudal glide FM w/ scap post elevation PT-OP-T Assessment and Plan Start: 04/29/23 14:56 Freq: Status: Active Protocol: Document 07/28/23 15:40 [facility] (Rec: 07/28/23 15:51 [facility] [id number]) Physical Therapy Assessment Goals activities Short Term Goal (STG) Pt will be able to sleep comfortably w/o having to change position to dec symptoms into LUE. STG Duration achieved Nursing Home Goal (LTG) Pt will be able to lift and swim w/o inc L shoulder pain. 07/06-limited lifting d/t some pain; pain w/backstroke mild LTG Duration 09/14/23 strength Short Term Goal (STG) pt will be indep w/HEP STG Duration achieved advancinga s able Nursing Home Goal (LTG) Pt will score 5/5 UE strength on L and at least 4/5 EFT to show improved stabiltiy in order pt to do all lifting tasks w/o inc pain. 07/06-much improved; EFT 2/5 LTG Duration 09/14/23 work Short Term Goal (STG) Pt will be able to carry a backpack as needed for work and hiking w/o inc pain and be able to sit at desk to work w /o inc pain STG Duration 08/14/23 Family Preservation Officer Goal (LTG) pt will be able to bend over patients as needed to treat them w/o inc pain. LTG Duration achieved 07/06 Assessment Summary Assessment Pt had imrpoved 90/90 ER after manual but did have a hard end feel even after treatment w/still less ROM than R. She cont to have a lot of ribcage and pec/lat tension which likely contributes to this tightness. Physical Therapy Plan Frequency and Duration Frequency of Treatment 1x/Week Duration of treatment (weeks) 10 Plan of Care Start Date 07/06/23 Plan of Care End Date 09/14/23 Next Visit Focus/Plan Next Note Type Treatment Note Next Visit Plan cont to work on 90/90 ER ROM; dynamic IR/ER strength, work on strength for row then over. look at AC w/90/90 ER
--- NOTE | 2023-08-10 15:52 | PT.OTN ---
Current Diagnoses Pain in left shoulder (08/10/23) Physical Therapy Treatment Note PT-OP-A Visit Information Start: 04/29/23 14:56 Freq: Status: Active Protocol: Document 08/10/23 14:38 [facility] (Rec: 08/10/23 15:52 [facility] [id number]) Out-Patient Physical Therapy Visit Information Visit Information Visit Type Treatment Note Visit Start Time 14:37 Visit Stop Time 15:19 Total Visit Minutes 42 Visit Number 9 Number of SWITCH COUPLER Visits 0 PT-OP-B Current Condition Start: 04/29/23 14:56 Freq: Status: Active Protocol: Document 05/06/23 15:16 [facility] (Rec: 05/06/23 16:52 [facility] [id number]) Current Condition History of Current Condition Onset Date January Current Complaints L shoulder History of Current Condition Pt reports in January she got a knot in L med scap border area then in February, her 2nd and 3rd finger is tingling. Now she gets a spasm in armpit. She likes to sleep on stomach and her L lat arm and into lat forearm. She is trying to sit better at her desk. 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 She gets the pain when bending over. She hasn't swam. She did light weights . Pt was doing a challenge w/ squats, dips, push ups in November and December and is wondering if that was par to fit. Now she is in the gym and she is working out. She has a noticed she is weaker. She can't bench d/t the signficant weakness. pt lean back when sleeping d/t otherwise arm goes numb. Motrin didn't help. She took a 12 hour steriod from the doc which helepd only a little. She feels like L shoulder has some dec ROM. Gets some shooting pain in lat neck. when MT was working on R side of neck, felt it burning down the arm. Denies JETER. Pt does wear a helmet when flying that has about 5lbs to it. Pt has LBP issues but that hasn't been an issue recently. Pt report that gets worse when she gains weight. She has worked w/ a chiro 3x and it wasn't helping. This was in February when is was really bad. Massage has helped but not fully. Treatment Goals Patient/Caregiver Goals be able to carry backpack, not have pain during work, be able lift more evenly PT-OP-C Subjective Start: 04/29/23 14:56 Freq: Status: Active Protocol: Document 08/10/23 14:38 [facility] (Rec: 08/10/23 15:52 [facility] [id number]) OP-PT Subjective Patient Comments Patient Comments Pt reports what was done last session really helped and she had improvement in pain and mobility, but still not full range. Yesterday, she noticed some pain again. Unsure why PT-OP-F Manual Assessment Start: 04/29/23 14:56 Freq: Status: Active Protocol: Document 05/06/23 15:16 [facility] (Rec: 05/06/23 16:52 [facility] [id number]) Manual Assessments Joint Mobility Assessment Joint Mobility Assessment L 1st rib elevated PT-OP-J Posture/Palpation/Skin Start: 04/29/23 14:56 Freq: Status: Active Protocol: Document 05/06/23 15:16 [facility] (Rec: 05/06/23 16:52 [facility] [id number]) Posture Evaluation [facility] Postural Classification System [facility] Postural Classifications Posterior/Posterior Elbow Flexion Test 1 Comments Posture Comments ant tipped and abd L scap PT-OP-K Range of Motion Start: 04/29/23 14:56 Freq: Status: Active Protocol: Document 05/06/23 15:16 [facility] (Rec: 05/06/23 16:52 [facility] [id number]) Cervical Spine Range of Motion Cervical Spine Active Degrees Flexion 62 Extension 45 Rotation Left 58 Rotation Right 62 Lateral Flexion Left 34 Lateral Flexion Right 35 Comments ext & R SB inc pain; LUE WNL except 90/90 ER PT-OP-L Special Tests Start: 04/29/23 14:56 Freq: Status: Active Protocol: Document 05/06/23 15:16 [facility] (Rec: 05/06/23 16:52 [facility] [id number]) Special Tests Cervical Spine Special Tests Traction Test Results inc symptoms down UE Spurling's Test Test Results inc symptoms down UE Neural Special Tests- Upper Body Radial Nerve Tension Comments positive l Ulnar Nerve Tension Comments relief of symptoms Median Nerve Tension Comments positive L PT-OP-M Strength Start: 04/29/23 14:56 Freq: Status: Active Protocol: Document 07/06/23 16:10 [facility] (Rec: 07/06/23 18:41 [facility] [id number]) Shoulder Strength Shoulder Manual Muscle Testing Right Flexion 5 Normal Extension 5 Normal Abduction (C5) 5 Normal External Rotation 5 Normal Internal Rotation 5 Normal Horizontal Abduction 5 Normal Horizontal Adduction 5 Normal Left Flexion 4+ Good+ Extension 4+ Good+ Abduction (C5) 4+ Good+ External Rotation 4 Good Internal Rotation 5 Normal Horizontal Abduction 5 Normal Horizontal Adduction 5 Normal Comments pain w/testing flex, ext, abd ER Elbow/Forearm Strength Elbow and Forearm Manual Muscle Testing Right Flexion (C6) 5 Normal Extension (C7) 5 Normal Left Flexion (C6) 5 Normal Extension (C7) 5 Normal Wrist Strength Wrist Manual Muscle Testing Right Flexion (C7) 5 Normal Extension (C6) 5 Normal Left Flexion (C7) 5 Normal Extension (C6) 5 Normal PT-OP-Q Treatments Start: 04/29/23 14:56 Freq: Status: Active Protocol: Document 08/10/23 14:38 [facility] (Rec: 08/10/23 15:52 [facility] [id number]) Manual Therapy Treatment Soft Tissue Mobilization scap Body Location L UT/LS & scalenes Mobilization Type Sustained Pressure Intensity/Depth Moderate Body Position Sidelying Comments w/scap dep post Body Location L lat, rhomboids Mobilization Type Rolling,Strumming,Sustained Pressure Intensity/Depth Moderate Comments w/ ER pec Body Location L minor and major Mobilization Type Sustained Pressure Comments w/IR/ER Joint Mobilizations GH Comments L post glide and post w/IR FM; L inf FM seated progressed to w/90 90 ER & inf FM w/stream line position AC Comments L clavicle ant FM; L scap post FM w/ER 90/90 SC Comments L distraction of clavicle L post and distraction at SC FM thoracic Comments PA T1-3 FM transverse R T2-5 FM PT-OP-T Assessment and Plan Start: 04/29/23 14:56 Freq: Status: Active Protocol: Document 08/10/23 14:38 [facility] (Rec: 08/10/23 15:52 [facility] [id number]) Physical Therapy Assessment Goals activities Short Term Goal (STG) Pt will be able to sleep comfortably w/o having to change position to dec symptoms into LUE. STG Duration achieved [facility] Goal (LTG) Pt will be able to lift and swim w/o inc L shoulder pain. 07/06-limited lifting d/t some pain; pain w/backstroke mild LTG Duration 09/14/23 strength Short Term Goal (STG) pt will be indep w/HEP STG Duration achieved advancinga s able Insulation Power Unit Tender Goal (LTG) Pt will score 5/5 UE strength on L and at least 4/5 EFT to show improved stabiltiy in order pt to do all lifting tasks w/o inc pain. 07/06-much improved; EFT 2/5 LTG Duration 09/14/23 work Short Term Goal (STG) Pt will be able to carry a backpack as needed for work and hiking w/o inc pain and be able to sit at desk to work w /o inc pain STG Duration 08/14/23 Insulation Power Unit Tender Goal (LTG) pt will be able to bend over patients as needed to treat them w/o inc pain. LTG Duration achieved 07/06 Assessment Summary Assessment Pt improved 90/90 ER after manual again and had improved overhead motion. discussed w/ pt that if concered about progress can disucss w/MD re: imaging. Physical Therapy Plan Frequency and Duration Frequency of Treatment 1x/Week Duration of treatment (weeks) 10 Plan of Care Start Date 07/06/23 Plan of Care End Date 09/14/23 Next Visit Focus/Plan Next Note Type Treatment Note Next Visit Plan cont to work on 90/90 ER ROM; dynamic IR/ER strength, work on strength for row then over. look further at AC and ribs w /90/90 ER & pt's swim streamline position
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
--- NOTE | 2023-09-03 17:47 | PT.OTN ---
Current Diagnoses Pain in left shoulder (09/03/23) Physical Therapy Treatment Note PT-OP-A Visit Information Start: 04/29/23 14:56 Freq: Status: Active Protocol: Document 09/03/23 17:32 [facility] (Rec: 09/03/23 17:47 [facility] [id number]) Out-Patient Physical Therapy Visit Information Visit Information Visit Type Treatment Note Visit Start Time 15:24 Visit Stop Time 16:04 Total Visit Minutes 40 Visit Number 11 Number of MECHANICAL DESIGN TECHNICIAN Visits 0 PT-OP-B Current Condition Start: 04/29/23 14:56 Freq: Status: Active Protocol: Document 05/06/23 15:16 [facility] (Rec: 05/06/23 16:52 [facility] [id number]) Current Condition History of Current Condition Onset Date January Current Complaints L shoulder History of Current Condition Pt reports in January she got a knot in L med scap border area then in February, her 2nd and 3rd finger is tingling. Now she gets a spasm in armpit. She likes to sleep on stomach and her L lat arm and into lat forearm. She is trying to sit better at her desk. 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 She gets the pain when bending over. She hasn't swam. She did light weights . Pt was doing a challenge w/ squats, dips, push ups in November and December and is wondering if that was par to fit. Now she is in the gym and she is working out. She has a noticed she is weaker. She can't bench d/t the signficant weakness. pt lean back when sleeping d/t otherwise arm goes numb. Motrin didn't help. She took a 12 hour steriod from the doc which helepd only a little. She feels like L shoulder has some dec ROM. Gets some shooting pain in lat neck. when MT was working on R side of neck, felt it burning down the arm. Denies JETER. Pt does wear a helmet when flying that has about 5lbs to it. Pt has LBP issues but that hasn't been an issue recently. Pt report that gets worse when she gains weight. She has worked w/ a chiro 3x and it wasn't helping. This was in February when is was really bad. Massage has helped but not fully. Treatment Goals Patient/Caregiver Goals be able to carry backpack, not have pain during work, be able lift more evenly PT-OP-C Subjective Start: 04/29/23 14:56 Freq: Status: Active Protocol: Document 09/03/23 17:32 [facility] (Rec: 09/03/23 17:47 [facility] [id number]) OP-PT Subjective Patient Comments Patient Comments pt reports she feels like swimming helps. Her doctor is out so hasn't gotten a referral for imaging. PT-OP-F Manual Assessment Start: 04/29/23 14:56 Freq: Status: Active Protocol: Document 05/06/23 15:16 [facility] (Rec: 05/06/23 16:52 [facility] [id number]) Manual Assessments Joint Mobility Assessment Joint Mobility Assessment L 1st rib elevated PT-OP-J Posture/Palpation/Skin Start: 04/29/23 14:56 Freq: Status: Active Protocol: Document 05/06/23 15:16 [facility] (Rec: 05/06/23 16:52 [facility] [id number]) Posture Evaluation [employer] Postural Classification System Ak[employer] Postural Classifications Posterior/Posterior Elbow Flexion Test 1 Comments Posture Comments ant tipped and abd L scap PT-OP-K Range of Motion Start: 04/29/23 14:56 Freq: Status: Active Protocol: Document 05/06/23 15:16 [facility] (Rec: 05/06/23 16:52 [facility] [id number]) Cervical Spine Range of Motion Cervical Spine Active Degrees Flexion 62 Extension 45 Rotation Left 58 Rotation Right 62 Lateral Flexion Left 34 Lateral Flexion Right 35 Comments ext & R SB inc pain; LUE WNL except 90/90 ER PT-OP-L Special Tests Start: 04/29/23 14:56 Freq: Status: Active Protocol: Document 05/06/23 15:16 [facility] (Rec: 05/06/23 16:52 [facility] [id number]) Special Tests Cervical Spine Special Tests Traction Test Results inc symptoms down UE Spurling's Test Test Results inc symptoms down UE Neural Special Tests- Upper Body Radial Nerve Tension Comments positive l Ulnar Nerve Tension Comments relief of symptoms Median Nerve Tension Comments positive L PT-OP-M Strength Start: 04/29/23 14:56 Freq: Status: Active Protocol: Document 08/25/23 16:08 [facility] (Rec: 08/25/23 17:47 [facility] [id number]) Shoulder Strength Shoulder Manual Muscle Testing Left Flexion 4- Good- Extension 5 Normal Abduction (C5) 5 Normal External Rotation 4 Good Internal Rotation 4+ Good+ Horizontal Abduction 5 Normal Horizontal Adduction 5 Normal PT-OP-Q Treatments Start: 04/29/23 14:56 Freq: Status: Active Protocol: Document 09/03/23 17:32 [facility] (Rec: 09/03/23 17:47 [facility] [id number]) Therapeutic Exercises Standing Exercises diagonal Standing Exercise Name D2 flex Side left Equipment Used lvl 2 Reps/Minutes [address] up w/elbow IR Standing Exercise Name 1. IR at side w/towel 2. 90/90 Side left Equipment Used lvl 2 Reps/Minutes 12 ea ER Standing Exercise Name 1. ER at side w/towel 2. 90/90 Side left Equipment Used lvl 2 Reps/Minutes 12 ea Manual Therapy Treatment Soft Tissue Mobilization scap Body Location L lat & teres & UT Mobilization Type Sustained Pressure Intensity/Depth Moderate Comments w/flex post Body Location L delt Mobilization Type Rolling,Strumming,Sustained Pressure Intensity/Depth Moderate Comments w/ ER pec Body Location L minor and major Mobilization Type Sustained Pressure Comments w/IR/ER Joint Mobilizations GH Comments inf glide w/flex and inf glide w/abd FM & post glide and translation FM AC Comments L clavicle ant FM; L scap post FM w/ER 90/90 & flex PT-OP-T Assessment and Plan Start: 04/29/23 14:56 Freq: Status: Active Protocol: Document 09/03/23 17:32 [facility] (Rec: 09/03/23 17:47 [facility] [id number]) Physical Therapy Assessment Goals activities Short Term Goal (STG) Pt will be able to sleep comfortably w/o having to change position to dec symptoms into LUE. STG Duration achieved [employer] International Goal (LTG) Pt will be able to lift and swim w/o inc L shoulder pain. 07/06-limited lifting d/t some pain; pain w/backstroke mild 08/25-pain initially w/ swimming but once warms up and after feels relief LTG Duration 11/03/23 strength Short Term Goal (STG) pt will be indep w/HEP STG Duration achieved advancinga s able Residential Goal (LTG) Pt will score 5/5 UE strength on L and at least 4/5 EFT to show improved stabiltiy in order pt to do all lifting tasks w/o inc pain. 07/06-much improved; EFT 10/19 08/25-some improved, some dec; EFT to 3/5 LTG Duration 11/03/23 work Short Term Goal (STG) Pt will be able to carry a backpack as needed for work and hiking w/o inc pain and be able to sit at desk to work w /o inc pain 08/25-can carry backback on shoulder but unable to lift w/ LLE; ok at desk STG Duration 09/18/23 Residential Goal (LTG) pt will be able to bend over patients as needed to treat them w/o inc pain. LTG Duration achieved 07/06 Assessment Summary Assessment Neg Obriens but positive Crank and Biceps load test indicating possible labral pathology. Pt encouraged to consider ortho and possible further imaging as progress is much slower at this time. Doing well with exercises, just requried cues / IR and ER Physical Therapy Plan Frequency and Duration Frequency of Treatment 1x/Week Duration of treatment (weeks) 10 Plan of Care Start Date 08/25/23 Plan of Care End Date 11/03/23 Next Visit Focus/Plan Next Note Type Treatment Note Next Visit Plan review exercises; dynamic IR/ ER strength; end range mobility
--- NOTE | 2023-10-27 17:53 | PT.OPDS ---
Current Diagnoses Pain in left shoulder (09/03/23) Visit Care Team Role Provider Type Wilian Ford MD Attending Provider Physician Family Provider Primary Care Provider Referring Provider Specialty: Internal Medicine Address: [address] [place] [address], [address], [place], [address] Email: [email or web address] Visit Number Visit Number 11 Discharge Summary PT-OP-B Current Condition Start: 04/29/23 14:56 Freq: Status: Active Protocol: Document 05/06/23 15:16 [facility] (Rec: 05/06/23 16:52 [facility] [id number]) Current Condition History of Current Condition Onset Date January Current Complaints L shoulder History of Current Condition Pt reports in January she got a knot in L med scap border area then in February, her 2nd and 3rd finger is tingling. Now she gets a spasm in armpit. She likes to sleep on stomach and her L lat arm and into lat forearm. She is trying to sit better at her desk. 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 She gets the pain when bending over. She hasn't swam. She did light weights . Pt was doing a challenge w/ squats, dips, push ups in November and December and is wondering if that was par to fit. Now she is in the gym and she is working out. She has a noticed she is weaker. She can't bench d/t the signficant weakness. pt lean back when sleeping d/t otherwise arm goes numb. Motrin didn't help. She took a 12 hour steriod from the doc which helepd only a little. She feels like L shoulder has some dec ROM. Gets some shooting pain in lat neck. when MT was working on R side of neck, felt it burning down the arm. Denies JETER. Pt does wear a helmet when flying that has about 5lbs to it. Pt has LBP issues but that hasn't been an issue recently. Pt report that gets worse when she gains weight. She has worked w/ a chiro 3x and it wasn't helping. This was in February when is was really bad. Massage has helped but not fully. Treatment Goals Patient/Caregiver Goals be able to carry backpack, not have pain during work, be able lift more evenly PT-OP-C Subjective Start: 04/29/23 14:56 Freq: Status: Active Protocol: Document 09/03/23 17:32 [facility] (Rec[facility]03[facility]23 [id number]-PT Subjective Patient Comments Patient Comments pt reports she feels like swimming helps. Her doctor is out so hasn't gotten a referral for imaging. PT-OP-F Manual Assessment Start: 04/29/23 14:56 Freq: Status: Active Protocol: Document 05/06/23 15:16 [facility] (Rec: 05/06/23 16:52 [facility] [id number]) Manual Assessments Joint Mobility Assessment Joint Mobility Assessment L 1st rib elevated PT-OP-J Posture/Palpation/Skin Start: 04/29/23 14:56 Freq: Status: Active Protocol: Document 05/06/23 15:16 [facility] (Rec: 05/06/23 16:52 [facility] [id number]) Posture Evaluation [facility] Postural Classification System [employer] Postural Classifications Posterior/Posterior Elbow Flexion Test 1 Comments Posture Comments ant tipped and abd L scap PT-OP-K Range of Motion Start: 04/29/23 14:56 Freq: Status: Active Protocol: Document 05/06/23 15:16 [facility] (Rec: 05/06/23 16:52 [facility] [id number]) Cervical Spine Range of Motion Cervical Spine Active Degrees Flexion 62 Extension 45 Rotation Left 58 Rotation Right 62 Lateral Flexion Left 34 Lateral Flexion Right 35 Comments ext & R SB inc pain; LUE WNL except 90/90 ER PT-OP-L Special Tests Start: 04/29/23 14:56 Freq: Status: Active Protocol: Document 05/06/23 15:16 [facility] (Rec: 05/06/23 16:52 [facility] [id number]) Special Tests Cervical Spine Special Tests Traction Test Results inc symptoms down UE Spurling's Test Test Results inc symptoms down UE Neural Special Tests- Upper Body Radial Nerve Tension Comments positive l Ulnar Nerve Tension Comments relief of symptoms Median Nerve Tension Comments positive L PT-OP-M Strength Start: 04/29/23 14:56 Freq: Status: Active Protocol: Document 08/25/23 16:08 [facility] (Rec: 08/25/23 17:47 [facility] [id number]) Shoulder Strength Shoulder Manual Muscle Testing Left Flexion 4- Good- Extension 5 Normal Abduction (C5) 5 Normal External Rotation 4 Good Internal Rotation 4+ Good+ Horizontal Abduction 5 Normal Horizontal Adduction 5 Normal PT-OP-T Assessment and Plan Start: 04/29/23 14:56 Freq: Status: Active Protocol: Document 10/27/23 17:52 [facility] (Rec: 10/27/23 17:53 [facility] [id number]) Physical Therapy Assessment Goals activities Short Term Goal (STG) Pt will be able to sleep comfortably w/o having to change position to dec symptoms into LUE. STG Duration achieved Shelter Goal (LTG) Pt will be able to lift and swim w/o inc L shoulder pain. 07/06-limited lifting d/t some pain; pain w/backstroke mild 08/25-pain initially w/ swimming but once warms up and after feels relief LTG Duration 11/03/23 strength Short Term Goal (STG) pt will be indep w/HEP STG Duration achieved advancinga s able Shelter Goal (LTG) Pt will score 5/5 UE strength on L and at least 4/5 EFT to show improved stabiltiy in order pt to do all lifting tasks w/o inc pain. 07/06-much improved; EFT 10/19 08/25-some improved, some dec; EFT to 3/5 LTG Duration 11/03/23 work Short Term Goal (STG) Pt will be able to carry a backpack as needed for work and hiking w/o inc pain and be able to sit at desk to work w /o inc pain 08/25-can carry backback on shoulder but unable to lift w/ LLE; ok at desk STG Duration 09/18/23 Shelter Goal (LTG) pt will be able to bend over patients as needed to treat them w/o inc pain. LTG Duration achieved 07/06 Assessment Summary Assessment Pt taken off [facility] for appt as she was called she reports that she is waiting on an MRI and will come back later as needed. Pt made progress w/PT but was still having pain and limitiation w/range w/concern for labral pathology and had been encouraged to contact doctor about further referral for potential imaging. Pt last seen 6 weeks ago. DC d/t no longer attending PT and POC to . Physical Therapy Plan Discharge Physical Therapy Discharge Reasons No Longer Attending PT
== END 2023-11-04 09:57 | disposition home or self-care (01) ==
LOC: PHYS 15:15
PROVIDERS: Family Provider Internal Medicine; PCP Internal Medicine; Referring Provider Internal Medicine; Visit Provider Internal Medicine
DX: M25.512 Pain in left shoulder (principal)
CPT/HCPCS: 97110; 97112; 97140; 97162

== ENCOUNTER → 2023-09-22 06:29 | Outpatient (CLI) | payer OTHER, SELFPAY ==
--- NOTE | 2023-09-22 06:33 | DI.RAD.S_ITS ---
PROCEDURE: XR SHOULDER LT MIN 2V INDICATIONS: left shoulder pain TECHNIQUE: 3 views of the shoulder were acquired. COMPARISON: None. FINDINGS: Bones: No fractures or dislocations. No suspicious bony lesions. Visualized ribs appear intact. Soft tissues: No suspicious soft tissue calcifications. IMPRESSION: No acute bony abnormality. Dictated by: Dl Polk M.D. on 09/22/2023 at 11:10 Approved by: Dl Polk M.D. on 09/22/2023 at 11:11
== END ==
PROVIDERS: Family Provider Internal Medicine; PCP Internal Medicine; Referring Provider Internal Medicine; Visit Provider Internal Medicine
DX: M25.512 Pain in left shoulder (principal)
CPT/HCPCS: 73030

== ENCOUNTER → 2023-11-10 07:51 | Outpatient (CLI) | payer OTHER, SELFPAY ==
[2023-11-10 08:54] LABS: Add Manual Diff / Slide Review NO; Basophils Absolute Auto 0 /uL (0-100); Basophils Percent Auto 0.6 % (0-2); Eosinophils Absolute Auto 200 /uL (0-450); Eosinophils Percent Auto 4.3 % (2-4); Hematocrit 40.9 % (36-46); Hemoglobin 13.6 g/dL (12.0-16.0); Lymphocytes Absolute Auto 1400 /uL (1100-4500); Lymphocytes Percent Auto 36.1 % (25-40); Mean Corpuscular HGB Conc 33.2 % (30-36); Mean Corpuscular Hemoglobin 30.2 PG (26-34); Mean Corpuscular Volume 90.8 fL (80-100); Monocytes Absolute Auto 300 /uL (0-900); Monocytes Percent Auto 6.9 % (3-14); Neutrophils Absolute Auto 2000 /uL (1500-7000); Neutrophils Percent Auto 52.1 % (50-75); Platelet Count 184 X10^3/uL (150-400); Red Blood Cell Count 4.51 X10^6/uL (4.0-5.2); Red Cell Distribution Width 13.9 % (11.6-14.8); White Blood Cell Count 3.8 X10^3/uL (4.5-11.0)
[2023-11-10 09:17] LABS: Alanine Aminotransferase 16 IU/L (<35); Albumin 4.1 g/dL (3.5-5.0); Albumin Globulin Ratio 1.4 (1.0-2.8); Alkaline Phosphatase 69 U/L (38-126); Aspartate Aminotransferase 19 IU/L (14-36); BUN Creatinine Ratio 29.6 (6-22); Bilirubin Total 0.5 mg/dL (0.2-1.3); Blood Urea Nitrogen 24 mg/dL (7-17); C-Reactive Protein Quant < 0.5 mg/dL (<1.0); Calcium 9.4 mg/dL (8.4-10.2); Carbon Dioxide 27 mmol/L (22-32); Chloride 107 mmol/L (98-107); Cholesterol 159 mg/dL (140-199); Erythrocyte Sedimentation Rate 2 MM/HR (0-20); Estimated Glomerular Filt Rate > 60 mL/min (>60); Glucose 90 mg/dL (70-100); HDL Cholesterol 77 mg/dL (40-60); HEMOLYSIS < 15 (0-50); LDL Cholesterol Calculated 73 mg/dL (<100); Potassium 4.5 mmol/L (3.4-5.1); Sodium 139 mmol/L (137-145); Total Protein 7.1 g/dL (6.3-8.2); Triglycerides 44 mg/dL (35-150)
[2023-11-10 09:42] LABS: Thyroid Stimulating Hormone 2.65 uIU/mL (0.47-4.68)
== END ==
PROVIDERS: Family Provider Internal Medicine; PCP Internal Medicine; Referring Provider Internal Medicine; Visit Provider Internal Medicine
DX: Z13.6 Encounter for screening for cardiovascular disorders (principal); R42 Dizziness and giddiness
CPT/HCPCS: 36415; 80053; 80061; 84439; 84443; 85025; 85651; 86140

== ENCOUNTER → 2023-12-14 17:03 | Outpatient (CLI) | payer OTHER, SELFPAY ==
--- NOTE | 2023-12-14 | DI.MRI.S_ITS ---
PROCEDURE: MR SHOULDER LT WO CON INDICATIONS: CHRONIC LEFT SHOULDER PAIN TECHNIQUE: Noncontrast oblique coronal T2 fast spin echo with fat saturation, oblique sagittal T1 spin echo and T2 fast spin echo with fat saturation, axial T1 spin echo and T2 fast spin echo with fat saturation through the shoulder. COMPARISON: [facility], CR, XR SHOULDER LT MIN 2V, 09/22/2023, 6:33. FINDINGS: Image quality: Diagnostic Rotator cuff: Bulk: No significant atrophy Teres minor: Intact Supraspinatus: Small possible bursal sided tear near the insertion. Mild tendinopathy Infraspinatus: Mild tendinopathy Subscapularis: Mild tendinopathy Bones and bursae: GH joint: There are mild degenerative changes AC joint: Moderate degenerative changes and periarticular edema Humeral head: Intact Scapula and acromion: Intact Bursa: Mild bursal edema Capsule: Labrum: Not well evaluated on this non-arthrographic study. The labrum circumferentially attenuated, likely due to chronic injury. There may be a sublabral foramen. Long head biceps tendon: Intra-articular mild tendinopathy IGHL: Intact Rotator interval: Preserved fat signal Soft tissues: No axillary adenopathy. Lungs are not well seen. IMPRESSION: Mild glenohumeral and moderate acromioclavicular degenerative changes. Edema surrounding the AC joint may represent additional sprain, without dislocation. Mild tendinopathy and small tear of the rotator cuff, without full-thickness defect. Mild bursitis. Circumferentially attenuated labrum likely due to chronic degenerative changes. If there is concern for labral pathology, consider MR arthrogram. Possible sublabral foramen is seen. Dictated by: Sebastian Daniels M.D. on 12/15/2023 at 11:18 Approved by: Sebastian Daniels M.D. on 12/15/2023 at 11:21
== END ==
PROVIDERS: Family Provider Internal Medicine; PCP Internal Medicine; Referring Provider Family Medicine; Visit Provider Family Medicine
DX: M75.112 Incomplete rotator cuff tear or rupture of left shoulder, not specified as traumatic (principal); M75.52 Bursitis of left shoulder; M25.512 Pain in left shoulder; G89.29 Other chronic pain
CPT/HCPCS: 73221

== ENCOUNTER → 2024-07-01 | Outpatient (CLI) | payer OTHER, SELFPAY | PROVIDERS: Family Provider Internal Medicine; PCP Internal Medicine; Referring Provider Internal Medicine; Visit Provider Internal Medicine | DX: Z23 Encounter for immunization (principal) | CPT/HCPCS: 90471; 90656 ==

== ENCOUNTER → 2025-08-24 11:04 | Outpatient (CLI) | payer OTHER, SELFPAY ==
--- NOTE | 2025-08-24 11:04 | DI.MG.S_ITS ---
MM screening mammo BI: 08/24/2025. BI-RADS: 1 CLINICAL: 54-year old female for bilateral screening mammogram. Tyrer-Cuzick lifetime risk of 10.7%. No personal or first-degree family history of breast cancer. Current reported family history of breast cancer: paternal grandmother. PRIOR EXAMS 07/25/2022, 03/09/2020, 02/20/2020, 01/13/2017. MAMMOGRAPHY TECHNIQUE: 2D and 3D (tomosynthesis) digital mammographic views obtained, with additional images as needed for full coverage. Current study was also evaluated with a Computer Aided Detection (CAD) system. DENSITY B. There are scattered areas of fibroglandular density. MAMMOGRAPHY FINDINGS Bilateral: No suspicious mass, asymmetry, microcalcification, or other abnormality seen. IMPRESSION: * No evidence of malignancy. RECOMMENDATIONS Bilateral * Annual screening mammography. OVERALL ASSESSMENT CATEGORY BI-RADS-1: Negative. The [employer] recommends annual screening mammography beginning at age 40 for women with average risk of breast cancer. ELECTRONICALLY SIGNED: Keely Mcmahon M.D. on 08/28/2025 at 03:05:15 PM PT Interpreting Station ID: [id number]
== END ==
PROVIDERS: Family Provider Internal Medicine; PCP Internal Medicine; Referring Provider Internal Medicine; Visit Provider Internal Medicine
DX: Z12.31 Encounter for screening mammogram for malignant neoplasm of breast (principal); Z80.3 Family history of malignant neoplasm of breast
CPT/HCPCS: 77063; 77067